=== PATIENT | male | born 1945 | race Caucasian/White ===

== ENCOUNTER 2017-09-01 19:33 | Inpatient (IN) | payer OTHER ==
[~2017-09-01] VITALS: Ht 170.2 cm; Wt 108.9 kg
--- NOTE | ~2017-09-01 | HC ---
[facility] [place] [address] CONSULTATION Name: ELIZABETH GARCIA Room #: 224-P ADM IN M.R.#: [id number] Admission: 09/01/17 Attend Phys: Arjun Jimenez Discharge: Date of : 47 Report #: [id number] THIS REPORT FOR: //name// CC: Basim Jimenez Physician staff DATE OF SERVICE: 09/03/2017 ATTENDING PHYSICIAN: Arjun Jimenez MD. REASON FOR CONSULTATION: Right leg cellulitis. HISTORY OF PRESENT ILLNESS: A 71-year-old white man is being dealing with right leg infection for 2 weeks, visited with his primary physician, Dr. Andrade. Cultures were obtained in the office. He was treated with Augmentin. He failed to improve. The cultures finally were reported as showing Staphylococcus aureus sensitive to oxacillin as well as Pseudomonas aeruginosa sensitive to most antibiotics, but carbapenem-resistant. The patient is on combination of Zosyn and vancomycin and of course, he is still having inflammatory changes and some pain on the right leg, but all in all, he is off gait. He is just wondering if he is going to lose his leg or not. PAST MEDICAL HISTORY: Diabetes mellitus; total knee replacement; right hip replacement; atrial fibrillation, status post permanent pacemaker. SOCIAL HISTORY: Single. Retired. FAMILY HISTORY: Alzheimer disease in father. REVIEW OF SYSTEMS: See H and P. PHYSICAL EXAMINATION: GENERAL: A well-developed, obese man, not toxic looking, no distress. VITAL SIGNS: Temperature 97.8, afebrile since admission, pulse 63, respirations 18, BP 145/69, height 5 feet 7 inches, weight 240 pounds. HEENT: Upper and lower plates. Pupils small. NECK: Supple, no thyromegaly. LUNGS: Clear. HEART: S1, S2. No gallop. Left side permanent pacemaker. The pocket site looks fine. ABDOMEN: Soft, no masses or megaly. EXTREMITIES: Reveal surgical scar, total knee replacement, right knee. Stasis dermatitis, left leg. Cellulitic changes, right leg with skin breakdown and some superficial bleeding. NEUROLOGIC: Grossly within normal limits. [facility] [address] [place] [address] CONSULTATION Name: ELIZABETH GARCIA Room #: 224-P [facility] IN ..#: [id number] Admission: 09/01/17 Attend Phys: Arjun Jimenez Discharge: Date of : 47 Report #: [id number] LABORATORY DATA: Cultures obtained of the right leg skin breakdown dated 08/29/2017 revealed methicillin-sensitive Staphylococcus aureus -- oxacillin-sensitive Staphylococcus aureus and Pseudomonas aeruginosa sensitive to Zosyn. Sodium 137, potassium 4.5, BUN 23, creatinine 0.9, glucose 187, 64. C-reactive protein 45.7. Protime 21.7. WBC 10.1, hemoglobin 13.4, platelets 214,000. White blood cell count differential revealed 80% segmented neutrophils. ESR 60 mm per hour. Vancomycin trough obtained today. MICROBIOLOGY DATA: Blood cultures were obtained on the of the month and they remained negative so far. RADIOLOGY EVALUATION: Venous ultrasound leg, no evidence of DVT. ASSESSMENT: 1. Cellulitis, right leg, superimposed on stasis dermatitis ulceration right leg, infected with Staphylococcus aureus, oxacillin sensitive and Pseudomonas aeruginosa, Zosyn sensitive. 2. Diabetes mellitus. 3. Status post permanent pacemaker. 4. History of right total knee replacement and right total hip replacement. SUGGESTIONS: Recommend MRSA screen. Continue Zosyn 3.375 g IV every 8 hours and may discontinue vancomycin for time being. Dr. Guerrier, thank you for requesting my suggestions in the care of your patient. <ELECTRONICALLY SIGNED> By: Timur Mariee MD 09/04/17 0823 1457 [id number] Timur Mariee MD /nt
[~2017-09-01 19:33] MED LIST: ACETAMINOPHEN325 MG; ACTOS 30 MG TAB30 M2 PO; CIPROFLOXACIN500 M1 PO; COUMADIN 5 MG TA5 M1 PO; COUMADIN7.5 MG PO; FINASTERIDE5 MG PO; FLAGYL500 MG PO; FLOMAX0.4 MG PO; GLIPIZIDE XL5 MG PO; GLUCOTROL5 MG PO; JANUVIA100 MG PO; METFORMIN HCL500 MG; MULTIVITAMINS; OMEPRAZOLE 20 M20 M1 PO; OXYBUTYNIN 5 MG5 M2 PO; PRILOSEC 20 MG20 MG PO; PROSCAR 5MG TABL5 MG; SIMVASTATIN40 MG PO; VITAMIN D3400 UNI2 PO; ZOCOR20 MG
[2017-09-01 19:43] VITALS: BP 131/67
[2017-09-01] MEDS ORDERED: LASIX 20 MG TAB20 MG PO (19:54)
[2017-09-01] MEDS ORDERED: PIOGLITAZONE15 MG (19:58)
[2017-09-01] MEDS ORDERED: VITAMIN B-12500 MCG PO (19:59)
[2017-09-01] MEDS ORDERED: LIPITOR80 MG PO (19:59)
[2017-09-01] MEDS ORDERED: VITAMINC500 PO (19:59)
[2017-09-01] MEDS ORDERED: KLOR-CON 1010 MEQ PO (19:59)
[2017-09-01] MEDS ORDERED: AUGMENTIN 875-1 EACH PO (20:00)
[2017-09-01] MEDS ORDERED: BACTROBAN CREAM30 G1 TOP (20:01)
[2017-09-01 20:21] LABS: ABSOLUTE NEUTROPHILS 8.1 thou/uL (1.4-8.2); BASOPHILS 0.8 % (0.0-2.0); EOSINOPHILS 0.3 % (0.0-3.0); HEMATOCRIT 39.8 % (42.0-52.0); HEMOGLOBIN 13.4 gm/dL (14.0-18.0); LYMPHOCYTES 9.9 % (24.0-44.0); MCH 29.1 pg (26.0-34.0); MCHC 33.8 g/dL (28.0-37.0); MCV 86.2 fL (80.0-100.0); MONOCYTES 8.3 % (1.0-8.0); PLATELET COUNT 246 thou/uL (150-400); POLYS 80.7 % (36.0-66.0); RBC 4.62 mil/uL (4.50-6.00); RDW 17.1 % (10.5-14.5); WBC 10.1 thou/uL (4.0-11.0)
[2017-09-01 20:43] LABS: CALCIUM 9.5 mg/dL (8.5-10.1); CREATININE 0.9 mg/dL (0.7-1.3); POTASSIUM 4.5 mmol/L (3.5-5.1)
[2017-09-01 22:29] VITALS: BP 151/60
[2017-09-01 22:55] VITALS: BP 151/60
[2017-09-02 00:16] LABS: INR 3.3; PROTIME 31.4 Seconds (9.3-11.4)
[2017-09-02] MEDS ORDERED: GLIPIZIDE XL5 MG PO (00:57)
[2017-09-02] MEDS ORDERED: COUMADIN 5 MG TA5 M1 PO (01:07)
[2017-09-02] MEDS ORDERED: OXYBUTYNIN 5 MG5 M2 PO (02:09)
[2017-09-02 06:48] LABS: INR 2.7; PROTIME 27.1 Seconds (9.3-11.4)
[2017-09-02 08:06] VITALS: BP 133/65
[2017-09-02 09:36] VITALS: BP 133/65
[2017-09-02 16:43] VITALS: BP 110/62
[2017-09-02 20:00] VITALS: BP 124/59
[2017-09-03 07:30] VITALS: BP 145/69
[2017-09-03 07:35] LABS: INR 2.1; PROTIME 21.7 Seconds (9.3-11.4)
[2017-09-03 20:20] VITALS: BP 139/69
[2017-09-04 07:49] LABS: INR 1.8; PROTIME 18.2 Seconds (9.3-11.4)
[2017-09-04 08:05] VITALS: BP 144/78
[2017-09-04 11:56] VITALS: BP 144/78
[2017-09-04] MEDS ORDERED: CIPRO500 MG PO (15:25)
[2017-09-04] MEDS ORDERED: KEFLEX500 M1 PO (15:25)
== END 2017-09-04 16:38 | disposition home health service (06) | DRG 602 ==
LOC: ER 19:33 → EROBS 22:05 → 4E 22:05 → SICU 09-02 16:33
PROVIDERS: Emergency Medicine; Nurse Practitioner Acute Care
DX: L03.115 Cellulitis of right lower limb (principal); E43 Unspecified severe protein-calorie malnutrition; L97.819 Non-pressure chronic ulcer of other part of right lower leg with unspecified severity; E11.9 Type 2 diabetes mellitus without complications; M19.90 Unspecified osteoarthritis, unspecified site; I87.2 Venous insufficiency (chronic) (peripheral); I48.2 Chronic atrial fibrillation; N32.81 Overactive bladder; N40.1 Benign prostatic hyperplasia with lower urinary tract symptoms; E78.5 Hyperlipidemia, unspecified; E66.9 Obesity, unspecified; B95.61 Methicillin susceptible Staphylococcus aureus infection as the cause of diseases classified elsewhere; B96.5 Pseudomonas (aeruginosa) (mallei) (pseudomallei) as the cause of diseases classified elsewhere; Z96.653 Presence of artificial knee joint, bilateral; Z96.641 Presence of right artificial hip joint; Z68.37 Body mass index [BMI] 37.0-37.9, adult; Z87.891 Personal history of nicotine dependence; Z95.0 Presence of cardiac pacemaker; Z79.01 Long term (current) use of anticoagulants; Z79.899 Other long term (current) drug therapy; Z88.8 Allergy status to other drugs, medicaments and biological substances; Z82.0 Family history of epilepsy and other diseases of the nervous system; Z80.0 Family history of malignant neoplasm of digestive organs
CPT/HCPCS: 10084; 15000

== ENCOUNTER 2018-01-04 17:25 | Inpatient (IN) | payer OTHER ==
[~2018-01-04] VITALS: Ht 177.8 cm; Wt 105.5 kg
--- NOTE | ~2018-01-04 | EKG ---
[address] [place] [address] ELECTROCARDIOGRAM REPORT Name: ELIZABETH GARCIA Room #: 431-P ADM IN M.R.#: [id number] Admission: 01/04/18 Attend Phys: Berny Key MD Discharge: Date of : 47 Report #: [id number] THIS REPORT FOR: //name// [facility] Test Date: 2018-01-05 Test Time: 10:54:41 Pat Name: ELIZABETH GARCIA Department: Room: 431 P Gender: M Enrollment Clerk: Shani MCGARRY : 1945 Requested By: Sophia Espinal Order Number: [id number] MD: Neymar Aguila Measurements Intervals [place] Rate: 79 P: 117 DE: 301 QRS: -56 QRSD: 152 T: 114 QT: 414 QTc: 475 Interpretive Statements Atrial-ventricular dual-paced rhythm No further analysis attempted due to paced rhythm Compared to ECG 01/27/2002 11:29:22 Dual chamber pacing is now present Electronically Signed On 01-05-2018 16:38:28 CDT by Neymar Aguila [email or web address] <ELECTRONICALLY SIGNED> By: Neymar Aguila MD, [facility] 01/05/18 1638 1054 1054 Neymar Aguila MD, [facility] /EPI
--- NOTE | ~2018-01-04 | 2DMMODE ---
[facility] [address] [place] [address] 2 D/M-MODE ECHOCARDIOGRAM Name: ELIZABETH GARCIA Room #: 431-P ADM IN M.R.#: [id number] Admission: 01/04/18 Attend Phys: Berny Key MD Discharge: Date of : 47 Date of Service: 01/05/18 1003 Report #: [id number] THIS REPORT FOR: //name// APPROVED REPORT Study performed: 01/05/2018 08:20:10 EXAM: Comprehensive 2D, Doppler, and color-flow Echocardiogram Patient Location: Echo lab Room #: [facility] BSA: 2.18 HR: 69 bpm BP: 151/66 mmHg Rhythm: NSR Other Information Study Quality: Adequate Technically limited study due to body habitus. Indications Congestive Heart Failure Bilateral leg edema. Hx: Afib, pacemaker 2D Dimensions RVDd: 39.72 mm IVSd: 14.00 (7-11mm) LVOT Diam: 21.97 (18-24mm) LVDd: 43.38 mm PWd: 14.00 (7-11mm) Ascending Ao: 39.22 (22-36mm) LVDs: 30.94 (25-40mm) Aortic Root: 35.50 mm Volumes Left Atrial Volume (Systole) Single Plane 4CH: 57.79 mL Single Plane 2CH: 42.54 mL LA ESV Index: 25.00 mL/m2 Aortic Valve AoV Peak Sharan.: 2.55 m/s AO Peak Gr.: 26.07 mmHg LVOT Max P.61 mmHg AO Mean Gr.: 13.09 mmHg AO V2 Mean: 1.66 m/s LVOT Max V: 1.38 m/s AO V2 VTI: 48.87 cm LISSET Vmax: 2.05 cm2 [facility] [place] [address] 2 D/M-MODE ECHOCARDIOGRAM Name: ELIZABETH GARCIA Room #: 431-P [facility] IN M.R.#: [id number] Admission: 01/04/18 Attend Phys: Berny Key MD Discharge: Date of : 47 Date of Service: 01/05/18 1003 Report #: [id number] Mitral Valve E/A Ratio: 0.7 MV Decel. Time: 312.47 ms MV E Max Sharan.: 0.65 m/s MV A Sharan.: 0.88 m/s MV PHT: 90.62 ms IVRT: 87.66 ms Pulmonary Valve PV Peak Sharan.: 1.03 m/s PV Peak Gr.: 4.20 mmHg Pulmonary Vein P Vein S: 0.52 m/s P Vein A: 0.29 m/s P Vein D: 0.26 m/s P Vein A Dur.: 133.8 msec P Vein S/D Ratio: 2.00 Tricuspid Valve TR Peak Sharan.: 2.69 m/s RAP Estimate: 5.00 mmHg TR Peak Gr.: 29.04 mmHg PA Pressure: 34.00 mmHg Left Ventricle The left ventricle is normal size. There is normal LV segmental wall motion. Mild concentric left ventricular hypertrophy. Left ventricular systolic function is normal. LVEF is 60-65%. Mild diastolic dysfunction is present (impaired relaxation pattern). Right Ventricle The right ventricle is normal size. The right ventricular systolic function is normal. Pacemaker lead is present in the right ventricle. Atria The left atrium size is normal. The right atrium size is normal. Aortic Valve Aortic valve is moderately calcified. Minimal aortic regurgitation. There is borderline valvular aortic stenosis. Calculated aortic valve area is 2.0 cm2 with maximum pressure gradient of 26 mmHg and mean pressure gradient of 13 mmHg. Mitral Valve The mitral valve is normal in structure. There is no mitral valve regurgitation noted. [facility] [address] [place] [address] 2 D/M-MODE ECHOCARDIOGRAM Name: ELIZABETH GARCIA Room #: 431-P [facility] IN [facility].#: [id number] Admission: 01/04/18 Attend Phys: Berny Key MD Discharge: Date of : 47 Date of Service: 01/05/18 1003 Report #: [id number] Tricuspid Valve The tricuspid valve is normal in structure. Trace to mild tricuspid regurgitation. Estimated PAP is 35mmHg. Pulmonic Valve Pulmonic valve is not well visualized. Trace pulmonic regurgitation. Great Vessels The aortic root is normal in size. The ascending aorta is normal in size. IVC is normal in size and collapses >50% with inspiration. Pericardium There is no pericardial effusion. <Conclusion> Left ventricular systolic function is normal. There is normal LV segmental wall motion. LVEF is 60-65%. Mild diastolic dysfunction Aortic valve is moderately calcified, mildly stenotic. Calculated aortic valve area is 2.0 cm2 with maximum pressure gradient of 26 mmHg and mean pressure gradient of 13 mmHg. The mitral valve is normal in structure. No mitral valve regurgitation Trace to mild tricuspid regurgitation. Estimated pulmonary artery pressure of 35mmHg. There is no pericardial effusion. <ELECTRONICALLY SIGNED> By: Neymar Aguila MD, FACC 01/05/18 100 02 02 Neymar Aguila MD, FACC /INF
--- NOTE | ~2018-01-04 | HC ---
[facility] [place] [address] CONSULTATION Name: ELIZABETH GARCIA Room #: 431-P ADM IN M.R.#: [id number] Admission: 01/04/18 Attend Phys: Berny Key MD Discharge: Date of : 47 Report #: [id number] THIS REPORT FOR: //name// CC: Berny Cates DATE OF SERVICE: 01/06/2018 INFECTIOUS DISEASES CONSULTATION ATTENDING PHYSICIAN: Dr. Key. REASON FOR CONSULTATION: Right leg stasis dermatitis, cellulitis. HISTORY OF PRESENT ILLNESS: The patient is a 72-year-old white man previously admitted to [facility] with similar problem as today. The patient has chronic stasis dermatitis and superficial ulcerations, right leg with some mild cellulitis and evidence of peripheral vascular disease by old ultrasound studies. Apparently, the patient had been on Lasix as well as Keflex, currently on Keflex 500 b.i.d. Denies fevers. PAST MEDICAL HISTORY: Type 2 diabetes mellitus. Left hip replacement. Right total knee replacement. Recurrent cellulitis, stasis ulceration, right leg. Status post permanent pacemaker. Chronic atrial fibrillation. Dyslipidemia. DRUG ALLERGIES: METFORMIN, SULINDAC. MEDICATIONS: The patient is on treatment with potassium chloride supplementation, torsemide, atorvastatin, warfarin, magnesium and potassium supplementation per protocol, cephalexin 500 p.o. b.i.d., multivitamins with minerals, finasteride, cholecalciferol, tamsulosin, glipizide XL, pantoprazole, insulin lispro per sliding scale, p.r.n. glucose, glucagon, p.r.n. ondansetron, pioglitazone was discontinued. SOCIAL HISTORY: He is single. Enjoys photography. We discussed about the multiple cameras he owns. FAMILY HISTORY: See H and P, old records. REVIEW OF SYSTEMS: Noncontributory. PHYSICAL EXAMINATION: GENERAL: Well-developed man, not toxic looking. VITAL SIGNS: Temperature maximum 99.2, pulse 61, respirations 17, BP 113/61. Height 5 feet 10 inches, weight 232.5 pounds. HEENMT: Within range. [facility] [address] [place] [address] CONSULTATION Name: ELIZABETH GARCIA Room #: 431-P ADM IN M.R.#: [id number] Admission: 01/04/18 Attend Phys: Berny Key MD Discharge: Date of : 47 Report #: [id number] NECK: Supple. LUNGS: Few basilar crackles. HEART: S1, S2. No gallops. ABDOMEN: Obese, soft, no masses or megaly. EXTREMITIES: Surgical scar of total knee replacement, right knee. Superficial skin breakdown, right pretibial region, some pretibial edema, no abuse cellulitic changes. Oozing per wounds. NEUROLOGIC: Grossly within normal limits. LABORATORY DATA: Sodium 138, potassium 3.9, BUN 20, creatinine 0.8, glucose 156. Protime 15.9. WBC 6000, hemoglobin 13.3, platelets 159,000. White blood cell count differential reveals 70% neutrophils, 19% lymphocytes. RADIOLOGY EVALUATION: Chest x-ray revealed cardiomegaly, elevation of right hemidiaphragm, bibasilar atelectasis, infiltrate, permanent pacemaker, elevation of right hemidiaphragm. Ultrasound arterial circulation revealed evidence of peripheral vascular disease. ASSESSMENT: 1. Stasis dermatitis -- chronic with superficial ulceration, right leg, question cellulitis. 2. Peripheral vascular disease. 3. Acute on chronic diastolic congestive heart failure 4. Atrial fibrillation, permanent pacemaker. 5. Hypertension. 6. Diabetes mellitus. SUGGESTIONS: Recommend Rocephin 1 g IV daily. Discontinue Keflex for time being. Continue local wound care. Discharged on Keflex [address] Key, thank you for requesting my suggestions. <ELECTRONICALLY SIGNED> By: Timur Mariee MD 01/07/18 0922 1043 2243 Timur Mariee MD /nt
[~2018-01-04 17:25] MED LIST changes: +AUGMENTIN 875-1 EACH PO; +BACTROBAN CREAM30 G1 TOP; +CIPRO500 MG PO; +KEFLEX500 M1 PO; +KLOR-CON 1010 MEQ PO; +LASIX 20 MG TAB20 MG PO; +LIPITOR80 MG PO; +PIOGLITAZONE15 MG; +VITAMIN B-12500 MCG PO; +VITAMINC500 PO
[2018-01-04 17:36] VITALS: BP 132/58
[2018-01-04 20:02] LABS: ABSOLUTE NEUTROPHILS 4.3 thou/uL (1.4-8.2); BASOPHILS 0.5 % (0.0-2.0); EOSINOPHILS 0.7 % (0.0-3.0); HEMATOCRIT 39.3 % (42.0-52.0); HEMOGLOBIN 13.3 gm/dL (14.0-18.0); LYMPHOCYTES 19.4 % (24.0-44.0); MCH 28.4 pg (26.0-34.0); MCHC 33.8 g/dL (28.0-37.0); MCV 84.1 fL (80.0-100.0); MONOCYTES 8.7 % (1.0-8.0); PLATELET COUNT 159 thou/uL (150-400); POLYS 70.7 % (36.0-66.0); RBC 4.67 mil/uL (4.50-6.00); RDW 17.5 % (10.5-14.5)
[2018-01-04 20:09] LABS: CALCIUM 9.6 mg/dL (8.5-10.1); CREATININE 0.8 mg/dL (0.7-1.3); POTASSIUM 4.6 mmol/L (3.5-5.1)
[2018-01-04 22:24] VITALS: BP 132/58
[2018-01-04 22:52] VITALS: BP 135/85
[2018-01-04 23:08] VITALS: BP 141/59
[2018-01-05 05:52] LABS: CALCIUM 9.2 mg/dL (8.5-10.1); CREATININE 0.8 mg/dL (0.7-1.3)
[2018-01-05 05:53] LABS: POTASSIUM 3.2 mmol/L (3.5-5.1)
[2018-01-05 06:27] LABS: INR 1.9; PROTIME 18.8 Seconds (9.3-11.4)
[2018-01-05 07:43] VITALS: BP 151/66
[2018-01-05 20:45] VITALS: BP 131/60
[2018-01-06 04:07] LABS: CALCIUM 9.5 mg/dL (8.5-10.1); CREATININE 0.8 mg/dL (0.7-1.3); POTASSIUM 3.9 mmol/L (3.5-5.1)
[2018-01-06 04:13] LABS: INR 1.6; PROTIME 15.9 Seconds (9.3-11.4)
[2018-01-06 07:35] VITALS: BP 113/61
[2018-01-06 15:34] VITALS: BP 113/61
[2018-01-06 15:52] VITALS: BP 131/92
[2018-01-06 19:16] VITALS: BP 128/68
[2018-01-07] VITALS (10 sets, daily range): BP systolic 109–141; BP diastolic 46–68
[2018-01-07 06:20] LABS: ABSOLUTE NEUTROPHILS 4.6 thou/uL (1.4-8.2); BASOPHILS 0.6 % (0.0-2.0); EOSINOPHILS 1.5 % (0.0-3.0); HEMOGLOBIN 14.2 gm/dL (14.0-18.0); LYMPHOCYTES 21.2 % (24.0-44.0); MCH 28.4 pg (26.0-34.0); MCHC 33.7 g/dL (28.0-37.0); MCV 84.2 fL (80.0-100.0); MONOCYTES 9.6 % (1.0-8.0); PLATELET COUNT 179 thou/uL (150-400); POLYS 67.1 % (36.0-66.0); RBC 4.98 mil/uL (4.50-6.00); RDW 17.5 % (10.5-14.5); WBC 6.8 thou/uL (4.0-11.0)
[2018-01-07 06:35] LABS: CALCIUM 9.8 mg/dL (8.5-10.1); CREATININE 0.8 mg/dL (0.7-1.3); POTASSIUM 3.7 mmol/L (3.5-5.1)
[2018-01-07 06:39] LABS: INR 1.4; PROTIME 14.2 Seconds (9.3-11.4)
[2018-01-08 04:55] VITALS: BP 129/74
[2018-01-08 06:27] LABS: INR 1.4; PROTIME 14.2 Seconds (9.3-11.4)
[2018-01-08 07:26] VITALS: BP 118/51
[2018-01-08] MEDS ORDERED: KEFLEX500 M1 PO (11:50)
[2018-01-08] MEDS ORDERED: COUMADIN7.5 MG PO (11:51)
== END 2018-01-08 15:55 | disposition home health service (06) | DRG 981 ==
LOC: ER 17:25 → EROBS 21:20 → 4E 21:20
PROVIDERS: Emergency Medicine; Internal Medicine; Nurse Practitioner Family; Nurse Practitioner Gerontology
DX: L97.919 Non-pressure chronic ulcer of unspecified part of right lower leg with unspecified severity (principal); I50.33 Acute on chronic diastolic (congestive) heart failure; E43 Unspecified severe protein-calorie malnutrition; D68.59 Other primary thrombophilia; L03.116 Cellulitis of left lower limb; E11.51 Type 2 diabetes mellitus with diabetic peripheral angiopathy without gangrene; M19.90 Unspecified osteoarthritis, unspecified site; Z96.643 Presence of artificial hip joint, bilateral; E78.5 Hyperlipidemia, unspecified; R23.8 Other skin changes; I87.2 Venous insufficiency (chronic) (peripheral); E87.6 Hypokalemia; I49.5 Sick sinus syndrome; Z60.2 Problems related to living alone; N40.0 Benign prostatic hyperplasia without lower urinary tract symptoms; I48.0 Paroxysmal atrial fibrillation; I77.1 Stricture of artery; Z23 Encounter for immunization; Z95.0 Presence of cardiac pacemaker; Z88.2 Allergy status to sulfonamides; Z88.8 Allergy status to other drugs, medicaments and biological substances; Z79.01 Long term (current) use of anticoagulants; Z80.0 Family history of malignant neoplasm of digestive organs; Z81.8 Family history of other mental and behavioral disorders; Z87.891 Personal history of nicotine dependence
CPT/HCPCS: 10084; 10183; 10783

== ENCOUNTER 2018-01-29 13:30 | Emergency (ER) | payer OTHER ==
[~2018-01-29] VITALS: Ht 177.8 cm; Wt 99.8 kg
[2018-01-29 14:26] LABS: ABSOLUTE NEUTROPHILS 3.8 thou/uL (1.4-8.2); BASOPHILS 0.5 % (0.0-2.0); EOSINOPHILS 0.8 % (0.0-3.0); HEMATOCRIT 39.8 % (42.0-52.0); HEMOGLOBIN 13.2 gm/dL (14.0-18.0); LYMPHOCYTES 18.5 % (24.0-44.0); MCH 28.1 pg (26.0-34.0); MCHC 33.1 g/dL (28.0-37.0); MCV 84.8 fL (80.0-100.0); MONOCYTES 7.6 % (1.0-8.0); PLATELET COUNT 153 thou/uL (150-400); POLYS 72.6 % (36.0-66.0); RDW 17.9 % (10.5-14.5); WBC 5.3 thou/uL (4.0-11.0)
[2018-01-29 14:29] LABS: CALCIUM 9.3 mg/dL (8.5-10.1); CREATININE 0.8 mg/dL (0.7-1.3); POTASSIUM 4.1 mmol/L (3.5-5.1)
[2018-01-29 14:35] LABS: ALBUMIN 3.1 g/dL (3.4-5.0); TOTAL BILIRUBIN 0.5 mg/dL (<0.1-1.0); TOTAL PROTEIN 7.1 g/dL (6.4-8.2)
== END 2018-01-29 16:24 | disposition home or self-care (01) ==
LOC: ER 13:30
PROVIDERS: Nurse Practitioner Family
DX: I73.9 Peripheral vascular disease, unspecified (principal); I10 Essential (primary) hypertension; E78.5 Hyperlipidemia, unspecified; E11.9 Type 2 diabetes mellitus without complications; I48.91 Unspecified atrial fibrillation; Z79.01 Long term (current) use of anticoagulants; Z96.642 Presence of left artificial hip joint; Z96.641 Presence of right artificial hip joint; Z95.0 Presence of cardiac pacemaker; Z88.8 Allergy status to other drugs, medicaments and biological substances; Z87.891 Personal history of nicotine dependence

== ENCOUNTER → 2018-10-14 | Outpatient (CLI) | payer OTHER | LOC: HYPER 10-05 13:54 | DX: E11.622 Type 2 diabetes mellitus with other skin ulcer (principal); L97.811 Non-pressure chronic ulcer of other part of right lower leg limited to breakdown of skin; R60.0 Localized edema; E78.5 Hyperlipidemia, unspecified; I48.91 Unspecified atrial fibrillation; Z79.84 Long term (current) use of oral hypoglycemic drugs; Z87.891 Personal history of nicotine dependence; Z95.0 Presence of cardiac pacemaker; Z79.01 Long term (current) use of anticoagulants; Z96.643 Presence of artificial hip joint, bilateral; Z96.651 Presence of right artificial knee joint ==

== ENCOUNTER → 2018-10-21 | Outpatient (CLI) | payer OTHER | LOC: HYPER 06:48 | DX: E11.622 Type 2 diabetes mellitus with other skin ulcer (principal); L97.811 Non-pressure chronic ulcer of other part of right lower leg limited to breakdown of skin; I48.91 Unspecified atrial fibrillation; E78.5 Hyperlipidemia, unspecified; R60.0 Localized edema; Z87.891 Personal history of nicotine dependence; Z79.84 Long term (current) use of oral hypoglycemic drugs; Z95.0 Presence of cardiac pacemaker; Z79.01 Long term (current) use of anticoagulants ==

== ENCOUNTER → 2018-10-29 | Outpatient (CLI) | payer OTHER | LOC: HYPER 06:48 | DX: E11.622 Type 2 diabetes mellitus with other skin ulcer (principal); L97.811 Non-pressure chronic ulcer of other part of right lower leg limited to breakdown of skin; R60.0 Localized edema; E78.5 Hyperlipidemia, unspecified; I48.91 Unspecified atrial fibrillation; Z79.84 Long term (current) use of oral hypoglycemic drugs; Z87.891 Personal history of nicotine dependence; Z79.01 Long term (current) use of anticoagulants; Z95.0 Presence of cardiac pacemaker ==

== ENCOUNTER 2019-05-18 15:43 | Emergency (ER) | payer OTHER ==
[~2019-05-18] VITALS: Ht 177.8 cm; Wt 105.7 kg
[2019-05-18 16:21] LABS: ABSOLUTE NEUTROPHILS 4.1 thou/uL (1.4-8.2); BASOPHILS 0.7 % (0.0-2.0); EOSINOPHILS 1.4 % (0.0-3.0); HEMATOCRIT 44.6 % (42.0-52.0); HEMOGLOBIN 14.3 gm/dL (14.0-18.0); LYMPHOCYTES 19.8 % (24.0-44.0); MCH 28.2 pg (26.0-34.0); MCV 88.1 fL (80.0-100.0); MONOCYTES 7.7 % (1.0-8.0); PLATELET COUNT 229 thou/uL (150-400); POLYS 70.4 % (36.0-66.0); RBC 5.07 mil/uL (4.50-6.00); RDW 16.9 % (10.5-14.5); WBC 5.8 thou/uL (4.0-11.0)
[2019-05-18 16:25] LABS: URINE BLOOD 3+ (Negative); URINE CLARITY TURBID; URINE COLOR YELLOW; URINE GLUCOSE-RANDOM* 1+ (Negative); URINE KETONES TRACE (Negative); URINE PROTEIN (DIPSTICK) 3+ (Negative); URINE SPECIFIC GRAVITY 1.015 (1.005-1.035); URINE UROBILINOGEN >= 8.0 E.U./dl (0.2-1.0)
[2019-05-18 16:26] LABS: ICTOTEST (BILI CONFIRMATORY) Negative (Negative); URINE BILIRUBIN NEGATIVE (Negative); URINE LEUKOCYTES-REFLEX 3+ (Negative); URINE NITRITE-REFLEX POSITIVE (Negative)
[2019-05-18 16:30] LABS: CALCIUM 9.1 mg/dL (8.5-10.1); CREATININE 0.9 mg/dL (0.7-1.3)
[2019-05-18 16:33] LABS: AMORPHOUS URATES Few /LPF (None Seen); BACTERIA-REFLEX >30 Many /HPF (None Seen); CASTS None Seen /LPF (None Seen); INR 4.4; PROTIME 44.8 Seconds (9.3-11.4); SQUAMOUS None Seen /LPF (0-3); URINE WBC-REFLEX >25 Many /HPF (0-5)
[2019-05-18] MEDS ORDERED: AZO BLADDER CO300 MG PO (16:34)
[2019-05-18] MEDS ORDERED: LIPITOR10 MG PO ×2 (16:35→16:36)
[2019-05-18] MEDS ORDERED: FLOMAX0.4 MG PO (16:36)
[2019-05-18] MEDS ORDERED: IRON18 M1 PO (16:37)
[2019-05-18] MEDS ORDERED: ACTOS 30 MG TAB30 M1 PO ×2 (16:38→16:39)
[2019-05-18] MEDS ORDERED: CEFUROXIME250 MG PO (17:12)
[2019-05-18] MEDS ORDERED: DESITIN57 GM TOP (17:16)
[2019-05-18 17:50] VITALS: BP 134/45
== END 2019-05-18 17:50 | disposition home or self-care (01) ==
LOC: ER 15:43
PROVIDERS: Emergency Medicine Emergency Medical Services
DX: N39.0 Urinary tract infection, site not specified (principal); I48.91 Unspecified atrial fibrillation; E78.5 Hyperlipidemia, unspecified; E11.9 Type 2 diabetes mellitus without complications; Z87.891 Personal history of nicotine dependence; Z88.8 Allergy status to other drugs, medicaments and biological substances

== ENCOUNTER 2020-05-22 18:06 | Inpatient (IN) | payer OTHER ==
[~2020-05-22] VITALS: Ht 177.8 cm; Wt 100.9 kg
[~2020-05-22 18:06] MED LIST changes: +ACTOS 30 MG TAB30 M1 PO; +AZO BLADDER CO300 MG PO; +CEFUROXIME250 MG PO; +DESITIN57 GM TOP; +IRON18 M1 PO; +LIPITOR10 MG PO
[2020-05-22 18:07] VITALS: BP 144/50
[2020-05-22 18:51] LABS: ABSOLUTE NEUTROPHILS 9.1 thou/uL (1.4-8.2); BASOPHILS 0.4 % (0.0-2.0); EOSINOPHILS 0.2 % (0.0-3.0); HEMATOCRIT 38.3 % (42.0-52.0); HEMOGLOBIN 12.2 gm/dL (14.0-18.0); LYMPHOCYTES 4.8 % (24.0-44.0); MCH 26.5 pg (26.0-34.0); MCHC 31.9 g/dL (28.0-37.0); MONOCYTES 6.6 % (1.0-8.0); PLATELET COUNT 151 thou/uL (150-400); RBC 4.61 mil/uL (4.50-6.00); RDW 18.6 % (10.5-14.5); WBC 10.4 thou/uL (4.0-11.0)
[2020-05-22 19:07] LABS: ANION GAP 11 mmol/L (7-16); BUN 20 mg/dL (7-18); CALCIUM 9.6 mg/dL (8.5-10.1); CHLORIDE 99 mmol/L (98-107); CO2 27 mmol/L (21-32); GLUCOSE 114 mg/dL (74-106); SODIUM 137 mmol/L (136-145)
[2020-05-22 19:15] LABS: APTT 34.9 Seconds (24.5-32.8); INR 1.3; PROTIME 14.3 Seconds (9.3-11.4)
[2020-05-22 19:37] LABS: ALBUMIN 3.4 g/dL (3.4-5.0); SGOT 41 U/L (15-37); SGPT 44 U/L (30-65); TOTAL BILIRUBIN 1.7 mg/dL (0.2-1.0); TOTAL PROTEIN 8.2 g/dL (6.4-8.2); TROPONIN-I <0.06 ng/mL (<0.06)
[2020-05-22 20:56] VITALS: BP 144/50
[2020-05-22 21:34] VITALS: BP 118/42
[2020-05-22 21:48] VITALS: BP 136/74
[2020-05-22] MEDS ORDERED: ASA81BEC PO (23:58)
[2020-05-23] MEDS ORDERED: TYLENOL325 M1 PO (00:01)
--- NOTE | 2020-05-23 00:50 | NUR ---
PT ADMITTED TO THE UNIT AT APPROXIMATELY 2130. PT IS A/O X4 AND IS UP WITH ASSIST. CURRENTLY UNABLE TO AMBULATE DUE TO WEAKNESS IN BILAT LE. DENIES C/O PAIN AT THIS TIME. ROOM AIR. V-PACED ON THE MONITOR. INCONTINENT OF BOWEL AND BLADDER. PICTURES TAKEN OF LOWER EXTREMITIES. ZGUARD APPLIED TO [place] AREA AND BUTTOCKS. ADMISSION COMPLETED. MEDICATIONS GIVEN PER JUN. FALL PRECAUTIONS IN PLACE, CALL LIGHT IS WITHIN REACH. WILL CONTINUE TO MONITOR.
--- NOTE | 2020-05-23 07:05 | EKG ---
[address] [address] ELECTROCARDIOGRAM REPORT Name: ELIZABETH GARCIA Room #: 464-P ADM IN M.R.#: [id number] Admission: 05/22/20 Attend Phys: Suni Collins MD Discharge: Date of : 47 Report #: [id number] [facility] ED Test Date: 2020-05-22 Test Time: 18:42:29 Pat Name: ELIZABETH GARCIA Department: Room: [facility] Gender: M Sole Buffer: sea : 1945 Requested By: Victor M Isabel Order Number: [id number] MD: Thee Ba Measurements Intervals [place] Rate: 65 P: 0 DC: 42 QRS: -60 QRSD: 152 T: 115 QT: 445 QTc: 463 Interpretive Statements Ventricular-paced rhythm No further analysis attempted due to paced rhythm Compared to ECG 01/05/2018 10:54:41 AV dual-paced complex(es) or rhythm no longer present Electronically Signed On 05-23-2020 7:04:56 CABLE WIRER by Thee Ba [email or web address] <ELECTRONICALLY SIGNED> By: Thee Ba MD, [facility] 05/23/20 0704 1842 1842 Thee Ba MD, [facility] /EPI
[2020-05-23 07:37] VITALS: BP 122/64
[2020-05-23 16:52] VITALS: BP 98/52
[2020-05-23 19:23] VITALS: BP 110/61
--- NOTE | 2020-05-23 19:37 | NUR ---
Assumed pt care at 7am.Pt in and out of bed to chair and bsc with assist x2. Assessment completed.vss.Pt has good appetite and voiced no c/o.Dr Key and Adriana here, order noted.Drsg change done to bilat lower extremities as ordered.Fall bundle in place. Will continue to monitor.
[2020-05-24 00:05] LABS: GLYCOHEMOGLOBIN (HGB A1C) 7.1 % (4.8-5.6)
--- NOTE | 2020-05-24 04:26 | NUR ---
PT IS A/O X4 AND IS UP WITH ASSIST TO THE BSC. DRSGS C/D/I TO LE. ROOM AIR. DENIES C/O PAIN OR DISCOMFORT. FALL PRECAUTIONS IMPLEMENTED, CALL LIGHT IS WITHIN REACH.
[2020-05-24 08:12] VITALS: BP 106/67
[2020-05-24 08:46] LABS: HEMATOCRIT 34.2 % (42.0-52.0); HEMOGLOBIN 10.7 gm/dL (14.0-18.0); MCH 25.9 pg (26.0-34.0); MCHC 31.3 g/dL (28.0-37.0); MCV 82.7 fL (80.0-100.0); RBC 4.13 mil/uL (4.50-6.00); RDW 19.1 % (10.5-14.5)
[2020-05-24 08:58] LABS: INR 1.5; PROTIME 16.2 Seconds (9.3-11.4)
[2020-05-24 09:08] LABS: CALCIUM 8.6 mg/dL (8.5-10.1); CREATININE 0.8 mg/dL (0.7-1.3); POTASSIUM 3.5 mmol/L (3.5-5.1)
--- NOTE | 2020-05-24 12:18 | HC ---
[facility] [place] [address] CONSULTATION Name: ELIZABETH GARCIA Room #: 464-P ADM IN M.R.#: [id number] Admission: 05/22/20 Attend Phys: Berny Key MD Discharge: Date of : 47 Report #: [id number] THIS REPORT FOR: cc: Basim Cates MD,Basim Castaneda,Linus Quintero MD ~ DATE OF SERVICE: 05/23/2020 INFECTIOUS DISEASE CONSULTATION ATTENDING PHYSICIAN: Dr. Collins. REASON FOR EVALUATION: Bilateral lower extremity inflammatory eruptions, suspect a component of skin and soft tissue infection with cellulitis. HISTORY OF SUBJECTIVE: Chart reviewed, the patient examined. This is a 74-year-old with history of diabetes mellitus, venous stasis insufficiency, who is unable to give specifics about his history. He did present to the Emergency Room after referral from home health. He has ongoing issues with bilateral lower extremity wounds complicated by significant swelling, apparently thought they were looking worse, increasing inflammatory ____. Denies significant fevers or chills. He does admit to some pain and specifically very weak, was unable to get out of his chair likely any significant pulmonary or gastrointestinal related complaints. Evaluation in the Emergency Room, chest x-ray showed mild cardiomegaly. Lactic acid was slightly elevated at 2.3, repeat was 1.9. ProBNP of 1400. Blood cultures are sterile thus far, empirically started on combination therapy with vancomycin and Zosyn. He is not overtly toxic appearing at this point. He notes he had cultures taken as an outpatient and try to track those down. ALLERGIES: METFORMIN, SULINDAC. CURRENT MEDICATIONS: Include potassium chloride, furosemide, aspirin, tamsulosin, famotidine, insulin, oxybutynin, atorvastatin, warfarin, Zosyn, p.r.n. analgesics and antiemetics. PAST MEDICAL HISTORY: As described above, diabetes mellitus, degenerative joint disease, venous stasis insufficiency with dermatitis and ulcers, history of atrial fibrillation, hyperlipidemia. SOCIAL HISTORY: Nonsmoker, occasional ethanol, no illicit drug use. FAMILY HISTORY: Noncontributory. REVIEW OF SYSTEMS: Otherwise, unremarkable. [facility] [address] [place] [address] CONSULTATION Name: ELIZABETH GARCIA Room #: 464-P [facility] IN ..#: [id number] Admission: 05/22/20 Attend Phys: Berny Key MD Discharge: Date of : 47 Report #: [id number] PHYSICAL EXAMINATION: GENERAL: He is pleasant. He is somewhat distracted, although he is concentrating on his eating, tayn-hf-mccimxrx distress, appears somewhat chronically ill, may have some degree of mild encephalopathy. VITAL SIGNS: Temperature 99.1 overnight T-max of 99.7, pulse 65, respirations 16, blood pressure 122/64. SKIN: Warm, dry, no rashes. HEENT: Unremarkable. NECK: Supple. LUNGS: Diminished breath sounds. HEART: Somewhat distant, regular with ectopy, do not appreciate any murmur. ABDOMEN: Soft, mildly distended, nontender. EXTREMITIES: Bilateral lower extremities have dressings in place. AND RECTAL: Deferred. LABORATORY DATA: Blood cultures sterile thus far. ProBNP of 1402. Lactic acid most recently 1.9. Electrolytes: Sodium 137, potassium 4.0, chloride 99, bicarbonate is 27, anion gap of 11, BUN and creatinine 20 and 1.0, glucose of 114, total bilirubin of 1.7, alkaline phosphatase of 170. LFTs were otherwise unremarkable. Albumin 3.4, total protein of 8.2. CBC: White count 7.4, H and H 12.2 and 38.3, platelets of 151. ASSESSMENT: Bilateral lower extremity inflammatory eruption. I think this is likely multifactorial in etiology. Certainly, the overall signs and symptoms of worsening would favor intercurrent component of infection as well as cellulitis. We will continue current therapy, specifically most likely a Staph or strep. Continue wound care as prescribed with elevation, may consider compression as well. Check arterial Doppler's noted back in 2018 had bilateral infrapopliteal arterial occlusive disease with arteriogram. <ELECTRONICALLY SIGNED> By: Linus Castaneda MD 05/24/20 1218 1340 1522 Linus Castaneda MD /nt
--- NOTE | 2020-05-24 14:49 | NUR ---
PT ADMITTED RELATED TO CELLULITIS. CM REVIEWED CHART AND SPOKE WITH CARE TEAM. CM MET WITH PT AT BEDSIDE THIS DAY. PT APPEARED TO BE A&O X4. CM ROLE INTRODUCED. PT INDICATED HE RESIDES IN A HOUSE ALONE WITH 2 STEPS TO ENTER AND NO STEPS HE USES INSIDE. PT INDICATED HE HAD A FWW AND A CANE. PT INDICATED NO SKILLED HX. PT INDICATED HE HAD HH IN THE RECENT PAST WITH [facility] 04/08/19. PT IS AWARE OR RECOMMENDATION FOR POST ACUTE CARE STAY AND IS RECEPTIVE. CM PROVIDED HIM A LIST FOR REVIEW. 5N I ALSO CONSULTED PT HAD BEEN THERE 4 OR 5 YEARS AGO. LOOKS LIKE ANGIOGRAM IS TO BE DONE TOMORROW. CM TO FOLLOW INDIATED WITH DC PLANNING.
--- NOTE | 2020-05-24 16:18 | NUR ---
PATIENT IS A CANDIDATE FOR ACUTE REHAB STAY. AUTHORIZATION PROCESSES INITIATED THIS DATE. NOW AWAITING CALL BACK FROM INSURANCE COMPANY TO PROVIDE FAX NUMBER TO SEND CLINICAL INFORMATION. PER PLOW HOLDER, CALL BACK WILL BE RECEIVED ON 05/25. INFORMATION IS PREPARED AND READY TO BE FAXED UPON RECEIPT OF NUMBER FROM INSURANCE COMPANY. INSURANCE INFORMED THAT PATIENT IS READY TO ADMIT TO REHAB ON 05/25/20. THANK YOU FOR THIS REFERRAL.
[2020-05-24 18:12] VITALS: BP 110/64
[2020-05-24 19:59] VITALS: BP 115/46
[2020-05-25 05:20] LABS: INR 1.8; PROTIME 19.1 Seconds (9.3-11.4)
[2020-05-25 05:25] LABS: HEMATOCRIT 34.4 % (42.0-52.0); MCH 26.4 pg (26.0-34.0); MCHC 31.9 g/dL (28.0-37.0); MCV 82.7 fL (80.0-100.0); RBC 4.16 mil/uL (4.50-6.00); RDW 18.8 % (10.5-14.5); WBC 4.9 thou/uL (4.0-11.0)
[2020-05-25 05:51] LABS: CALCIUM 8.3 mg/dL (8.5-10.1); CREATININE 0.8 mg/dL (0.7-1.3); POTASSIUM 3.5 mmol/L (3.5-5.1)
--- NOTE | 2020-05-25 05:59 | NUR ---
A/O X4 WITH FORGETFULLNESS. UP WITH ASSIST X1 WITH WALKER AND GB. ROOM AIR. VSS. WOUND CARE COMPLETED TO LE. CURRENT DRSG IS C/D/I. NO C/O PAIN OR DISCOMFORT. PT ACCIDENTALLY DISCHARGED IV TO LEFT HAND. REMOVED WITH CATHETER INTACT. INCONTINENT OF URINE. NO BM THIS SHIFT.FALL PRECAUTIONS IN PLACE,CALL LIGHT IS WITHIN REACH. WILL CONTINUE TO MONITOR.
[2020-05-25 07:37] VITALS: BP 126/64
[2020-05-25 11:43] VITALS: BP 126/64
--- NOTE | 2020-05-25 11:51 | NUR ---
ASSUMED CARE OF PATIENT AT SHIFT CHANGE. ASSESSMENT CHARTED. MEDICATIONS HELD PER NPO STATUS. VITALS REMAIN STABLE. PATIENT IS ALERT TO SELF, PLACE BUT CONFUSED WITH TIME AND SITUATION, NEEDING CONSTANT REMINDING AND REDIRECTION. OT/PT WORKED W PATIENT. PATIENT NEEDED MANY CUES. PATIENT VOICED HUNGER BUT DENIED PAIN. WOUND DRESSINGS TAKEN OFF; INFECTIOUS DISEASE DOCTOR SAW PATIENT. PATIENT LEFT FOR ANGIOGRAM AT APPROX. 1030. PLAN IS FOR PATIENT TO TRANSFER TO CORONARY CARE UNIT POST PROCEDURE. AWAITING REPORT/UPDATE.
--- NOTE | 2020-05-25 12:33 | NUR ---
PT WENT FOR ANGIOGRAM THIS DAY. CARE TEAM INDICATED THAT PT MAY TRANSFER TO CCU POST PROCEDURE. 5N HAS SUBMITTED FOR AUTH FOR POSSIBLE ADMISSION. PT HAS A [facility] LIST FOR REVIEW IF 5N NOT AUTHORIZED. CM TO FOLLOW IN INDICATED.
--- NOTE | 2020-05-25 12:33 | HC ---
[facility] [place] [address] CONSULTATION Name: ELIZABETH GARCIA Room #: 464-P ADM IN M.R.#: [id number] Admission: 05/22/20 Attend Phys: Berny Key MD Discharge: Date of : 47 Report #: [id number] THIS REPORT FOR: cc: Basim Cates MD, Charles MD Althoff,Ulises Benton MD ~ DATE OF SERVICE: 05/23/2020 CHIEF COMPLAINT: Lower extremity cellulitis. HISTORY OF PRESENT ILLNESS: This is a 74-year-old male patient admitted to the Emergency Department from his [facility] for worsening bilateral lower extremity cellulitis. He has a history of type 2 diabetes mellitus and some evidence of peripheral vascular disease based on prior angiography. He has had some pain, swelling, redness. He is admitted for treatment with IV antibiotics. I have been asked to see him with regard to wound care. PAST MEDICAL HISTORY: Positive for type 2 diabetes mellitus, hyperlipidemia, peripheral vascular disease, atrial fibrillation requiring long-term anticoagulation, GERD, BPH, DJD, congestive heart failure. He has previous permanent pacemaker placement, previous right knee and right hip replacement, left hip replacement. SOCIAL HISTORY: The patient admits an occasional alcohol consumption. No history of tobacco use. FAMILY HISTORY: Positive for stomach cancer in his mother. ALLERGIES: SULINDAC and METFORMIN. MEDICATIONS: Include acetaminophen, aspirin, atorvastatin, famotidine, furosemide, glucagon, hydrocodone, ondansetron, Zosyn, tamsulosin, vancomycin, warfarin, glipizide, omeprazole, oxybutynin, pioglitazone, simvastatin. REVIEW OF SYSTEMS: CONSTITUTIONAL: The patient denies fever, chills or weight loss. NEUROLOGIC: The patient denies focal weakness, numbness or tingling. EYES: The patient denies visual changes, redness, or drainage. ENT: The patient denies earache, nasal drainage or sore throat. CARDIOVASCULAR: The patient denies chest pain, palpitations or diaphoresis. PULMONARY: The patient denies cough or shortness of breath. GASTROINTESTINAL: The patient denies nausea, vomiting, diarrhea or abdominal pain. ORTHOPEDIC: The patient complains of pain, swelling and redness of the lower extremities. [address] [address] CONSULTATION Name: ELIZABETH GARCIA Room #: 464-P ADM IN M.R.#: [id number] Admission: 05/22/20 Attend Phys: Berny Key MD Discharge: Date of : 46 Report #: [id number] Other systems in a 14-point review of systems are negative. PHYSICAL EXAMINATION: VITAL SIGNS: At this time include temperature 36.9, pulse 65, respiratory rate of 16, blood pressure 98/52. GENERAL: This is a somewhat chronically ill-appearing male patient who appears to be in minimal distress. HEENT: Head normocephalic. Nose and throat are clear. NECK: Supple. LUNGS: Diminished. HEART: Irregular without murmur. ABDOMEN: Soft, nontender. EXTREMITIES: Lower extremities demonstrate moderate warmth, erythema and some mild stasis dermatitis bilaterally, more redness and swelling on the left than the right. LABORATORY DATA: Include sodium 137, potassium 4.0, chloride 99, CO2 of 27, BUN 20, creatinine 1.0, glucose 114. Lactic acid 1.9, total bilirubin is 1.7, albumin 3.4. INR 1.3. White blood cell count 10.4 with a hemoglobin of 12.2, hematocrit of 38.3. CLINICAL IMPRESSION: 1. Cellulitis, bilateral lower extremities, left greater than right. 2. Peripheral arterial disease based on prior angiography with the current arterial Dopplers of low image quality. 3. Hyperlipidemia. 4. Diabetes type 2. RECOMMENDATIONS: At this point in time, the patient will be started on intravenous antibiotic therapy. Cultures have been obtained and are pending at this time. Recommend elevation of the legs presently. We will discuss the possibility of an angiogram with Interventional Radiology regarding his significant peripheral vascular disease. Recommend PRAFO boots for pressure prophylaxis, medical management of his hyperlipidemia and diabetes. I appreciate being asked to see him in consultation. <ELECTRONICALLY SIGNED> By: Ulises Wright MD 05/25/20 1233 [id number] Ulises Wright MD /nt
--- NOTE | 2020-05-25 13:33 | NUR ---
RECEIVED CALL BACK (THIS AM) FROM INSURANCE WITH FAX NUMBER TO SEND CLINICALS. CLINICAL INFORMATION SENT TO INSURANCE COMPANY. WILL AWAIT RESPONSE FOR EITHER AUTHORIZATION OR DENIAL TO ACUTE REHAB AUTHORIZATION REQUEST. UNKNOWN IF RESPONSE WILL COME PRIOR TO THURSDAY. THANK YOU FOR THIS REFERRAL.
--- NOTE | 2020-05-25 14:06 | NUR ---
AUTHORIZATION FOR ACUTE REHAB STAY DENIED BY INSURANCE. INSURANCE RECOMMENDED ALTERNATE LEVRL OF CARE - SNF. PEER TO PEER CAN BE PERFORMED IF DESIRED. NUMBER TO CALL TO [facility] FOR PEER TO PEER IS BY 11:00 [employer] [employer] CONSULTANT ON MAY 30, 2020. PIN DRAFTER INFORMED OF DECISION. THANK YOU FOR THIS REFERRAL.
--- NOTE | 2020-05-25 15:50 | NUR ---
CM NOTIFIED THAT INSURANCE DENIED AUTH FOR ACUTE REAHB ON 5N. PT IS OFF UNIT FOR ANGIOGRAM. CM HAD PROVIDED PT WITH A [employer] SNF LIST TO REVIEW FOR BACKUPS. CM TO FOLLOW UP WITH PT TO SEE WHERE HE WANTS REFERRALS SENT FOR SHORT TERM SKILLED POST ACUATE CARE PLACEMENT.
[2020-05-25 16:49] VITALS: BP 131/57
--- NOTE | 2020-05-25 17:55 | NUR ---
PATIENT ARRIVED TO UNIT AT APPROX. 1641. STILL CONFUSED AND DISORIENETED NEEDING REDIRECTION. SITE ON R FEMUR C/D/I NO TENDERNESS OR PAIN VOICED. PATIENT TOLERATING DINNER WELL. WILL CONTINUE TO MONITOR AND ENDORSE TO NOC RN
[2020-05-25 20:45] VITALS: BP 128/70
--- NOTE | 2020-05-26 02:24 | NUR ---
PT CARE ASSUMED WITH PT IN BED.PT IS ALERT AND CONFUSE.PT MOVED FROM 464 TO ROOM 452 CLOSE TO NURSING STATION PT TRYING TO GET OUT OF BED AND REMOVE IV .PT HAS REDNESS ON STEVE LE OPEN TO AIR.PT INCONTINENT TO BLADDER.PT HAD ANGIOGRAM YESTERDAY AND SITE NON TENDER,NO SWELLING AND NO BLEEDING.DRESSING C/D/I.PT IS ACCUCHECK ACHS WITH LOW SSI.WILL CONTINUE TO MONITOR PER POC
[2020-05-26 05:46] LABS: HEMATOCRIT 33.8 % (42.0-52.0); HEMOGLOBIN 10.7 gm/dL (14.0-18.0); MCH 25.9 pg (26.0-34.0); MCHC 31.6 g/dL (28.0-37.0); MCV 81.9 fL (80.0-100.0); RBC 4.13 mil/uL (4.50-6.00); RDW 18.2 % (10.5-14.5); WBC 4.7 thou/uL (4.0-11.0)
[2020-05-26 05:53] LABS: CALCIUM 8.5 mg/dL (8.5-10.1); CREATININE 0.7 mg/dL (0.7-1.3); POTASSIUM 3.7 mmol/L (3.5-5.1)
[2020-05-26 06:06] LABS: INR 1.9; PROTIME 20.7 Seconds (9.3-11.4)
[2020-05-26 07:40] VITALS: BP 123/75
[2020-05-26 12:36] VITALS: BP 123/75
--- NOTE | 2020-05-26 13:40 | NUR ---
ASSUMED CARE OF THIS PATIENT AFTER REPORT. ASSESSMENT CHARTED. MEDICATIONS ADMINISTERED PER EMAR. VSS. PATIENT IS A&OX3-4 AND APPEARS LESS CONFUSED THAN YESTERDAY. STILL FORGETFUL; ASKING WHERE HE IS AT AND ASKING WHERE HIS WALLET IS. WALLET WAS LOCATED AND WITH PATIENT. PATIENT IS INCONINENT OF URINE MOST OF THE TIME BUT DOES USE URINAL AT TIMES. PATIENT WAS BLADDER SCANNED W 0MLS POST VOID. PROVIDER WAS INFORMED. DENIES PAIN OR DISCOMFORT. REQUESTED TO HAVE TV CHANNEL CHANGED. LESS IMPULSIVITY THIS SHIFT. BED ALARM AND NSS FOR SUPERVISION. ABX INFUSING ON R FA W NO ISSUES. WILL CONTINUE TO MONITOR THIS PATIENT.
[2020-05-26 15:27] LABS: URINE BILIRUBIN NEGATIVE (Negative); URINE BLOOD NEGATIVE (Negative); URINE CLARITY CLEAR; URINE COLOR YELLOW; URINE GLUCOSE-RANDOM* NEGATIVE (Negative); URINE KETONES NEGATIVE (Negative); URINE LEUKOCYTES-REFLEX NEGATIVE (Negative); URINE NITRITE-REFLEX NEGATIVE (Negative); URINE PROTEIN (DIPSTICK) NEGATIVE (Negative)
[2020-05-26 20:25] VITALS: BP 139/66
--- NOTE | 2020-05-27 05:33 | NUR ---
Assumedd pt care at 1900. A/OX4 with forgetfulness noted,VSS. Denies pain on assessment,up with AX1 RW/GB. Incontinent of bladder this shift,pericare done as needed and moisture barrier applied as needed;redness on perirectal area noted.. Pt repositioned Q2 hrs,on a SINAN mattress. Drsg on right groin C/D/I, no bogginess noted. Resting quietly at this time with no distress noted,will continue to monitor pt.
[2020-05-27 06:11] LABS: INR 1.9; PROTIME 20.7 Seconds (9.3-11.4)
[2020-05-27 06:47] LABS: ABSOLUTE NEUTROPHILS 4.5 thou/uL (1.4-8.2); BASOPHILS 0.5 % (0.0-2.0); EOSINOPHILS 1.9 % (0.0-3.0); HEMATOCRIT 33.7 % (42.0-52.0); HEMOGLOBIN 10.5 gm/dL (14.0-18.0); LYMPHOCYTES 12.5 % (24.0-44.0); MCH 25.8 pg (26.0-34.0); MCV 83.2 fL (80.0-100.0); MONOCYTES 10.1 % (1.0-8.0); PLATELET COUNT 148 thou/uL (150-400); RBC 4.06 mil/uL (4.50-6.00); RDW 18.7 % (10.5-14.5); WBC 5.9 thou/uL (4.0-11.0)
[2020-05-27 07:04] LABS: CALCIUM 8.2 mg/dL (8.5-10.1); CREATININE 0.6 mg/dL (0.7-1.3); PHOSPHORUS 2.5 mg/dL (2.6-4.7); POTASSIUM 3.9 mmol/L (3.5-5.1)
[2020-05-27 07:12] VITALS: BP 122/60
--- NOTE | 2020-05-27 15:50 | NUR ---
ASSESSMENT CHARTED. PT ALERT AND ORIENTED WITH FORGETFULNESS. PLEASANT AND COOPERATIVE WITH CARES. DENIED HAVING PAIN OR DISCOMFORT. VSS. WOUND CARE PROVIDED. NO CONCERNS AT THIS TIME.
[2020-05-27 17:11] VITALS: BP 127/61
[2020-05-27 19:26] VITALS: BP 124/77
[2020-05-28 05:41] LABS: INR 1.9; PROTIME 20.9 Seconds (9.3-11.4)
[2020-05-28 07:10] VITALS: BP 129/55
--- NOTE | 2020-05-28 11:11 | NUR ---
CM FOLLOWED UP WITH PT AT BEDSIDE THIS AM. CM INDICATED THAT HIS INSURANCE DENIED AUTH FOR 5N ACUTE INPATIENT REHAB. CM PROVIDED PT WITH ANOTHER [employer] SNF LIST AND ASKED THAT HE INDICATED WHERE HE WOULD LIKE REFERRALS SENT FOR SHORT TERM SKILLED STAY.
--- NOTE | 2020-05-28 11:12 | NUR ---
Received awake on bed. Due medications given as prescribed, able to swallow meds w/o difficulty. On room air. Vital signs stable. On MS, not on telemetry; no complains and signs of chest pain, crushing sensation and heaviness. Assisted in ADLs. On 2 gm Na diet- tolerating well; assisted in eating and drinking; no nausea, no vomiting and no abdominal pain. With on and off incontinence; able to use urinal at times; checked frequently and changed as needed. Falls bundle in place. With bilateral leg cellulitis, dressing in place; kept elevated. With SL at R AC and L FA- on IV antibiotics. To continue monitoring patient. Patient seen and examined by Dr Key, possible discharge today- CM aware; Covid swab done. Pt seen and examined by PT, tolerated session well; able to sit out on the chair.
--- NOTE | 2020-05-28 13:48 | NUR ---
FAXED REFERRAL TO [facility] RECEIVED CONFIRMATIN AND SPOKE WITH RADHA IN ADM SHE WILL REVIEW.
[2020-05-28 15:44] VITALS: BP 112/55; BP 130/47
[2020-05-28 19:22] VITALS: BP 118/52
--- NOTE | 2020-05-29 03:46 | NUR ---
PT IS A/O X4 WITH SOME FORGETFULLNESS. CONFUSION INCREASES AT NOC. ROOM AIR. MS STATUS. INCONTINENT OF BOWEL AND BLADDER. DRSGS TO ERIN ARE C/D/I. REFUSES PRAFO BOOTS THIS NOC. FALL PRECAUTIONS IN PLACE, CALL LIGHT IS WITHIN REACH. WILL CONTINUE TO MONITOR.
[2020-05-29 05:10] LABS: INR 2.6; PROTIME 27.6 Seconds (9.3-11.4)
[2020-05-29 08:10] VITALS: BP 128/61
[2020-05-29] MEDS ORDERED: MINOCYCLINE 5050 M1 PO (12:03)
--- NOTE | 2020-05-29 13:15 | NUR ---
AUTH WAS RECEIVED FOR PT TO GO TO [facility] THIS DAY. CARE TEAM INDICATED THAT PT IS MEDCIALLY STABLE TO DISCHARGE. CM NOTIFIED PT AND HE IS AWARE AND AGREEABLE. CHART COPY MADE. ORDERS FAXED. NURSE GIVEN NUMBER FOR REPORT. [facility] TRANSPORT ARRANGED FOR 1500. NO OTHER CM INTERVENTION INDICATED. CASE CLOSED.
[2020-05-29 14:50] VITALS: BP 121/77
--- NOTE | 2020-05-29 19:43 | NUR ---
Received awake on bed. Due medications given as prescribed, able to swallow meds w/o difficulty. On room air. Vital signs stable. On MS, not on telemetry; no complains and signs of chest pain, crushing sensation and heaviness. Assisted in ADLs. On 2gm Na diet- tolerating well; no nausea, no vomiting and no abdominal pain noted. With on and off incontinence- checked frequently and changed as needed. With bilateral lower extremity cellulitis- dressing C/D/I; dressing changed today, photo taken; kept elevated; prafo boots in place. With SL at R AC and L FA- on IV antibiotics. Falls bundle in place. Complained of pain, due PRN pain meds given as prescribed. To continue monitoring patient. Pt seen and examined by Dr Key this AM, possible discharge- CM aware; a/w insurance authorization. CM advised, authorization obtained- Dr Key aware as well. Discharge orders made. Transport picker packer at 1400- moved to 1500. Discharge instructions, follow up schedule given and instructed. Discharge forms signed. IV discontinued. No telemetry noted. Pt fetched by transport staff; chart copy given. Brought out of the unit with his personal belongings via wheelchair. Report given to Giovany- given emphasis on pt's follow up with Dr Cruz on June. Patient discharged.
== END 2020-05-29 17:16 | DRG 253 ==
LOC: ER 18:06 → 4W 20:45 → EROBS 20:45 → 4W 21:33
PROVIDERS: Emergency Medicine; Internal Medicine; Nurse Practitioner; Nurse Practitioner Family; ADMIT Hospitalist; ATTEND Hospitalist
PROC: B4101ZZ Fluoroscopy of Abdominal Aorta using Low Osmolar Contrast (ICD-10-PCS; principal; 2020-05-25)
PROC: B41F1ZZ Fluoroscopy of Right Lower Extremity Arteries using Low Osmolar Contrast (ICD-10-PCS; principal; 2020-05-25)
PROC: B41G1ZZ Fluoroscopy of Left Lower Extremity Arteries using Low Osmolar Contrast (ICD-10-PCS; principal; 2020-05-25)
PROC: 047Q3ZZ Dilation of Left Anterior Tibial Artery, Percutaneous Approach (ICD-10-PCS; principal; 2020-05-25)
PROC: B4181ZZ Fluoroscopy of Bilateral Renal Arteries using Low Osmolar Contrast (ICD-10-PCS; principal; 2020-05-25)
DX: E11.51 Type 2 diabetes mellitus with diabetic peripheral angiopathy without gangrene (principal); L03.115 Cellulitis of right lower limb; L03.116 Cellulitis of left lower limb; E46 Unspecified protein-calorie malnutrition; I48.20 Chronic atrial fibrillation, unspecified; G93.40 Encephalopathy, unspecified; I70.202 Unspecified atherosclerosis of native arteries of extremities, left leg; M19.90 Unspecified osteoarthritis, unspecified site; I50.9 Heart failure, unspecified; I83.12 Varicose veins of left lower extremity with inflammation; E53.8 Deficiency of other specified B group vitamins; N40.0 Benign prostatic hyperplasia without lower urinary tract symptoms; I83.11 Varicose veins of right lower extremity with inflammation; N32.81 Overactive bladder; E78.5 Hyperlipidemia, unspecified; K21.9 Gastro-esophageal reflux disease without esophagitis; E55.9 Vitamin D deficiency, unspecified; Z96.643 Presence of artificial hip joint, bilateral; Z60.2 Problems related to living alone; Z96.651 Presence of right artificial knee joint; Z20.822 Contact with and (suspected) exposure to COVID-19; Z68.31 Body mass index [BMI] 31.0-31.9, adult; Z79.899 Other long term (current) drug therapy; Z79.01 Long term (current) use of anticoagulants; Z79.84 Long term (current) use of oral hypoglycemic drugs; Z88.8 Allergy status to other drugs, medicaments and biological substances; Z87.891 Personal history of nicotine dependence
CPT/HCPCS: 10045; 10047

== ENCOUNTER 2020-06-19 13:06 | Inpatient (IN) | payer OTHER ==
[~2020-06-19] VITALS: Ht 180.3 cm; Wt 94.4 kg
[~2020-06-19 13:06] MED LIST changes: +ASA81BEC PO; +MINOCYCLINE 5050 M1 PO; +TYLENOL325 M1 PO
[2020-06-19 13:07] VITALS: BP 106/61
[2020-06-19 13:45] LABS: ABSOLUTE NEUTROPHILS 9.5 thou/uL (1.4-8.2); BASOPHILS 0.2 % (0.0-2.0); EOSINOPHILS 0.3 % (0.0-3.0); HEMATOCRIT 35.8 % (42.0-52.0); HEMOGLOBIN 11.4 gm/dL (14.0-18.0); LYMPHOCYTES 4.8 % (24.0-44.0); MCHC 31.9 g/dL (28.0-37.0); MCV 81.5 fL (80.0-100.0); MONOCYTES 7.5 % (1.0-8.0); PLATELET COUNT 149 thou/uL (150-400); POLYS 87.2 % (36.0-66.0); RDW 18.7 % (10.5-14.5); WBC 10.9 thou/uL (4.0-11.0)
[2020-06-19 14:07] LABS: CALCIUM 9.1 mg/dL (8.5-10.1); CREATININE 0.8 mg/dL (0.7-1.3); POTASSIUM 3.6 mmol/L (3.5-5.1)
[2020-06-19 14:11] LABS: DIRECT BILIRUBIN 0.7 mg/dL (<0.1-0.2); TOTAL BILIRUBIN 1.6 mg/dL (0.2-1.0)
[2020-06-19 15:12] LABS: ANISOCYTOSIS 1+; PLATELET ESTIMATE NORMAL
[2020-06-19 15:16] LABS: APTT 48.7 Seconds (24.5-32.8); INR 2.7; PROTIME 27.8 Seconds (9.3-11.4)
[2020-06-19 16:51] LABS: URINE BILIRUBIN NEGATIVE (Negative); URINE BLOOD TRACE (Negative); URINE CLARITY CLEAR; URINE COLOR YELLOW; URINE GLUCOSE-RANDOM* NEGATIVE (Negative); URINE KETONES 1+ (Negative); URINE LEUKOCYTES-REFLEX NEGATIVE (Negative); URINE NITRITE-REFLEX NEGATIVE (Negative); URINE PROTEIN (DIPSTICK) TRACE (Negative); URINE SPECIFIC GRAVITY 1.025 (1.005-1.035)
[2020-06-19 18:42] VITALS: BP 119/64
[2020-06-19 18:59] LABS: FOLIC ACID 9.2 ng/mL (8.6-58.9)
--- NOTE | 2020-06-19 18:59 | NUR ---
SPOKE WITH KT MITTAL WITH [facility] OF SENIOR [facility] [phone] EMS HAD REPORTED PT'S LIVING CONDITIONS, KT WAS ALREADY AWARE OF SITUATION.
[2020-06-19 19:40] VITALS: BP 131/58
[2020-06-20] VITALS (9 sets, daily range): BP systolic 98–141; BP diastolic 45–65
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
[2020-06-20 05:56] LABS: INR 2.8; PROTIME 29.3 Seconds (9.3-11.4)
[2020-06-20 05:59] LABS: ABSOLUTE NEUTROPHILS 6.8 thou/uL (1.4-8.2); BASOPHILS 0.3 % (0.0-2.0); EOSINOPHILS 1.1 % (0.0-3.0); HEMATOCRIT 30.6 % (42.0-52.0); HEMOGLOBIN 9.9 gm/dL (14.0-18.0); LYMPHOCYTES 8.1 % (24.0-44.0); MCH 26.4 pg (26.0-34.0); MCHC 32.5 g/dL (28.0-37.0); MCV 81.4 fL (80.0-100.0); MONOCYTES 8.6 % (1.0-8.0); PLATELET COUNT 127 thou/uL (150-400); POLYS 81.9 % (36.0-66.0); RBC 3.76 mil/uL (4.50-6.00); RDW 18.2 % (10.5-14.5); WBC 8.3 thou/uL (4.0-11.0)
[2020-06-20 06:32] LABS: CALCIUM 8.3 mg/dL (8.5-10.1); CREATININE 0.6 mg/dL (0.7-1.3); MAGNESIUM 1.8 mg/dL (1.8-2.4); POTASSIUM 3.3 mmol/L (3.5-5.1)
--- NOTE | 2020-06-20 07:06 | EKG ---
[address] [address] ELECTROCARDIOGRAM REPORT Name: RADHAELIZABETH Gandhi Room #: 443-P ADM IN M.R.#: [id number] Admission: 06/19/20 Attend Phys: Joao Kyle MD Discharge: Date of : 47 Report #: [id number] [facility] ED Test Date: 2020-06-19 Test Time: 13:19:54 Pat Name: ELIZABETH GARCIA Department: Room: 443 Gender: M Division Traffic Superintendent: SAMI : 1945 Requested By: Jalil Lim Order Number: [id number] MD: Thee Ba Measurements Intervals [place] Rate: 65 P: 0 CT: 62 QRS: -54 QRSD: 160 T: 125 QT: 465 QTc: 484 Interpretive Statements Ventricular-paced complexes No further rhythm analysis attempted due to paced rhythm Left bundle branch block Compared to ECG 05/22/2020 18:42:29 Left bundle-branch block now present Electronically Signed On 06-20-2020 7:05:49 CDT by Thee Ba [email or web address] <ELECTRONICALLY SIGNED> By: Thee Ba MD, FACC 06/20/20 0705 1319 1319 Thee Ba MD, FAC /EPI
--- NOTE | 2020-06-20 14:01 | NUR ---
ASSESSMENT: CM REVIEWED CHART AND SPOKE WITH PATIENT. PT WAS ADMITTED DUE TO CELLULITIS/WEAKNESS. PT ADMITS FROM HOME WHERE HE WAS IN SERVICES WITH [facility]. PT JUST RECENTLY DISCHARGED FROM [facility] ON MONDAY 06/19. [facility] STATING THEY HAD SOME CONCERNS ABOUT HIM BEING AT HOME. CM RECEIVED A CALL FROM SETH MARIE [phone] WITH [facility] STATING THERE IS AN OPEN INVESTIGATION WITH THIS PATIENT. SETH REQUEST TO BE UPDATED WITH THE DISCHARGE PLAN. CM FAXED UPDATED CLINICAL TO [facility]. CM ALSO SPOKE WITH PT WHO REPORTS THAT HE LIVES AT HOME ALONE. PT STATING THAT HE HAS A CANE AND WALKER TO ASSIST WITH AMBULATION. PT REPORTS FEELING WEAK AT HOME. CM DISCUSSED LIKELY NEED FOR POST ACUTE CARE. PT STATES HE WOULD BE AGREEABLE BUT DOES NOT WANT TO RETURN TO [facility]. THERE IS A CONSULT IN FOR 5N TO EVAL. CM NOTIFIED LIASON OF SITUATION. CONSULT ALSO PLACED FOR ID AND WOUND CARE. CM WILL CONTINUE TO FOLLOW TO ASSIST NEEDED.
--- NOTE | 2020-06-20 20:14 | NUR ---
A/O, calm and pleasant; denied pain, no n/v. tolerated NPO well for the procedure. stayed with head of bed at 35 degree for over 2 hours.
--- NOTE | 2020-06-21 04:51 | NUR ---
PT AOX4. PT DENIES PAIN AND SOB AT REST WHILE ON ROOM AIR. PT HAS PRN PO APAP Q4HR AVAILABLE. PT TOLERATING PO INTAKE OF FLUIDS WITH PO MEDICATION ADMINISTRATION. PT WITHOUT NAUSEA OR EMESIS. PT INCONTINENT OF BLADDER AND BOWEL, REFUSING PERICARE. PT RESTING IN BED THROUGHOUT SHIFT, FREQUENT REPOSITIONING ENCOURAGED. PT REFUSING REPOSITIONING DUE TO REPORTS OF COMFORT. PT ENCOURAGED TO NOTIFY STAFF FOR ALL NEEDS, CALL LIGHT WITHIN REACH, BED ALARM ON, BED LOCKED IN LOWEST POSITION, FREQUENT MONITORING WILL CONTINUE.
[2020-06-21 06:01] LABS: INR 2.9; PROTIME 30.3 Seconds (9.3-11.4)
[2020-06-21 07:50] VITALS: BP 131/59
[2020-06-21 09:05] LABS: HEMATOCRIT 30.6 % (42.0-52.0); HEMOGLOBIN 9.7 gm/dL (14.0-18.0); MCHC 31.6 g/dL (28.0-37.0); MCV 82.3 fL (80.0-100.0); RBC 3.72 mil/uL (4.50-6.00); RDW 19.1 % (10.5-14.5); WBC 7.4 thou/uL (4.0-11.0)
[2020-06-21 09:18] LABS: CREATININE 0.7 mg/dL (0.7-1.3); POTASSIUM 3.1 mmol/L (3.5-5.1)
--- NOTE | 2020-06-21 10:18 | 2DMMODE ---
[facility] [place] [address] 2 D/M-MODE ECHOCARDIOGRAM Name: ELIZABETH GARCIA Oksana Room #: 443-P ADM IN M.R.#: [id number] Admission: 06/19/20 Attend Phys: Joao Kyle MD Discharge: Date of : 47 Report #: [id number] THIS REPORT FOR: cc: Basim Cates MD, Charles MD Santiago, Patrick MD [facility] ~ ADDENDUM APPROVED REPORT Study performed: 06/21/2020 08:14:41 EXAM: Comprehensive 2D, Doppler, and color-flow Echocardiogram Patient Location: Bedside Room #: 443 Status: routine BSA: 2.15 HR: 65 bpm BP: 98/45 mmHg Rhythm: Pacemaker Other Information Study Quality: Adequate/flat on back Indications Leg swelling, History of CHF Hx: Afib, pacemaker, PAD, DM, HLP. 2D Dimensions RVDd: 45.10 mm IVSd: 13.15 (7-11mm) LVOT Diam: 22.50 (18-24mm) LVDd: 43.17 mm PWd: 12.81 (7-11mm) Ascending Ao: 37.86 (22-36mm) LVDs: 30.83 (25-40mm) Left Atrium: 47.09 (27-40mm) Aortic Root: 35.84 mm Volumes Left Atrial Volume (Systole) Single Plane 4CH: 89.94 mL Single Plane 2CH: 80.78 mL LA ESV Index: 43.00 mL/m2 Aortic Valve AoV Peak Sharan.: 2.73 m/s AO Peak Gr.: 29.78 mmHg LVOT Max P.68 mmHg AO Mean Gr.: 16.69 mmHg [facility] [address] [place] [address] 2 D/M-MODE ECHOCARDIOGRAM Name: ELIZABETH GARCIA Room #: 443-[facility] IN [facility].#: [id number] Admission: 06/19/20 Attend Phys: Joao Kyle, Discharge: Date of : 47 Report #: [id number] AO V2 Mean: 1.91 m/s LVOT Max V: 0.96 m/s AO V2 VTI: 59.02 cm LISSET Vmax: 1.40 cm2 Mitral Valve MV Decel. Time: 157.84 ms MV E Max Sharan.: 1.04 m/s Pulmonary Valve PV Peak Sharan.: 0.78 m/s PV Peak Gr.: 2.41 mmHg Tricuspid Valve TR Peak Sharan.: 2.38 m/s RAP Estimate: 10.00 mmHg TR Peak Gr.: 23.00 mmHg PA Pressure: 43.00 mmHg Left Ventricle The left ventricle is normal size. There is normal LV segmental wall motion. Mild concentric left ventricular hypertrophy. Left ventricular systolic function is normal. LVEF is 55-60%. This study is not technically sufficient to allow evaluation of the LV diastolic function. Right Ventricle Right ventricle is mildly dilated. The right ventricular systolic function is normal. Atria Left atrium is moderately dilated. The right atrium size is normal. Pacemaker lead is present in the right atrium. Aortic Valve Aortic valve is moderately calcified, trileaflet. No aortic regurgitation is present. There is mild-moderate valvular aortic stenosis. Calculated aortic valve area is 1.4 cm2 (Peak gradient of 30 mmHg, mean pressure gradient of 17 mmHg). Mitral Valve The mitral valve is normal in structure. Mild mitral regurgitation. No evidence of mitral valve stenosis. Tricuspid Valve The tricuspid valve is normal in structure. Mild to moderate tricuspid regurgitation. Estimated PAP is 30mmHg[place] [address] 2 D/M-MODE ECHOCARDIOGRAM Name: MISAMEGANDIDIELIZABETH Room #: 443-P [facility] IN .R.#: [id number] Admission: 06/19/20 Attend Phys: Joao Kyle, Discharge: Date of : 47 Report #: [id number] The pulmonary valve is normal in structure. Trace pulmonic regurgitation. Great Vessels The aortic root is normal in size. The ascending aorta is borderline dilated. IVC is dilated and collapses <50% with inspiration. Pericardium There is no pericardial effusion. <Conclusion> Left ventricular systolic function is normal. There is normal LV segmental wall motion. LVEF is 55-60%. Right ventricle is mildly dilated. Left atrium is moderately dilated. Pacing wires seen. Aortic valve is moderately calcified, trileaflet. Mild-moderate stenosis, no insufficiency Calculated aortic valve area is 1.4 cm2 (Peak gradient of 30 mmHg, mean pressure gradient of 17 mmHg). The mitral valve is normal in structure. Mild mitral regurgitation. Mild to moderate tricuspid regurgitation. Estimated pulmonary artery pressure of 43 mmHg There is no pericardial effusion. <ELECTRONICALLY SIGNED> By: Thee Ba MD, FACC 06/21/20 1017 1017 101 Thee Ba MD, FACC /INF
--- NOTE | 2020-06-21 14:29 | NUR ---
Patient reports when he dc home from [facility] he sat at home until HH RN arrived. he reports he could not stand. Discussed post acute care. Patient interested in referral to [facility]. Acute Rehab 5N declined patient.
[2020-06-21 15:55] VITALS: BP 93/53
--- NOTE | 2020-06-21 16:17 | NUR ---
FAXED REFERRAL TO [facility]. WILL CONFIRM WITH ELVIN/LIAISON THAT THEY RECEIVED AND BED AVAILABILITY. [facility] P [phone]; [facility]VIN[facility]Lia FAX [phone]; Arthur [phone] ADDRESS: [address] [place] [address], [facility] [id number]
--- NOTE | 2020-06-21 18:39 | NUR ---
A/O, calm and cooperative. denied pain, no n/v. wound care team saw the patinet later afternoon.
[2020-06-21 18:51] VITALS: BP 117/58
--- NOTE | 2020-06-22 03:55 | NUR ---
ASSUMED PT CARE AT 1900.PT DENIED PAIN,N/V SO FAR.BLE CELLULITIS/EDEMA NOTED.AMMONIUM CREAM TO LEGS,FEET ELEVATED.PT CONT ON IV ABX ORDERED.UP WITH ASSIST X1.PT ABLE TO MAKE HIS NEEDS KNOWN.CALL LIGHT WITHIN REACH.
[2020-06-22 04:44] LABS: PROTIME 31.4 Seconds (9.3-11.4)
[2020-06-22 08:10] VITALS: BP 108/71
--- NOTE | 2020-06-22 09:11 | HC ---
[facility] [place] [address] CONSULTATION Name: ELIZABETH GARCIA Room #: 443-P ADM IN M.R.#: [id number] Admission: 06/19/20 Attend Phys: Joao Kyle MD Discharge: Date of : 47 Report #: [id number] THIS REPORT FOR: cc: Basim Cates MD,Basim Castaneda,Linus Quintero MD ~ DATE OF SERVICE: 06/21/2020 INFECTIOUS DISEASE CONSULTATION ATTENDING PHYSICIAN: Dr. Kyle. REASON FOR EVALUATION: Right lower extremity inflammatory eruption, likely multifactorial with component of skin and soft tissue infection and cellulitis. HISTORY OF PRESENT ILLNESS: Chart reviewed, patient examined. This is a 74-year-old known to myself, who was actually discharged from the hospital fairly recently. Has bilateral lower extremity inflammatory eruption, felt to be likely multifactorial including venous stasis insufficiency with dermatitis. He apparently went to a facility and was deemed ready to be discharged within the last day or two prior to his readmission, had basically gone home and sat in the chair and states he was too weak to move and complained of increasing pain associated in particular with his right lower extremity distally, perhaps more focally on the second toe. It is not clear if he had any fevers or chills. He states his appetite has been blunted. No pulmonary or gastrointestinal related complaints. On evaluation, lactic acid was borderline elevated at 2.0. Procalcitonin was 0.21. Chest x-ray showed no acute process. Venous Doppler showed no evidence of right lower extremity DVT. Urinalysis was otherwise unremarkable. Concerned about possible infectious complication. He was admitted and underwent venogram, which was otherwise unremarkable. Blood cultures are sterile thus far. He was empirically started on vancomycin. He notes he has still persistent pain, maybe slightly less. ALLERGIES: LISTED TO METFORMIN, SULINDAC, LATEX. CURRENT MEDICATIONS: Include oxybutynin, atorvastatin, aspirin, tamsulosin, glipizide XL, potassium chloride, finasteride, oxybutynin, furosemide, pantoprazole, warfarin, and vancomycin. PAST MEDICAL HISTORY: Diabetes mellitus type 2, degenerative joint disease, atrial fibrillation, hyperlipidemia, and some mild dementia. SOCIAL/FAMILY HISTORY: Available in chart. REVIEW OF SYSTEMS: Otherwise, unremarkable. [address] [address] CONSULTATION Name: ELIZABETH GARCIA Room #: 443-P [facility] IN .R.#: [id number] Admission: 06/19/20 Attend Phys: Joao Kyle MD Discharge: Date of : 47 Report #: [id number] PHYSICAL EXAMINATION: GENERAL: Appears somewhat chronically ill and undernourished, sitting in a chair, mildly encephalopathic. VITAL SIGNS: Temperature 98, pulse 63, respirations 16, blood pressure 131/59. SKIN: Warm, dry, no rashes. HEENT: Normocephalic. Extraocular muscles intact. NECK: Supple. LUNGS: Clear to auscultation. HEART: Regular. Borderline bradycardic. I do not appreciate a murmur. ABDOMEN: Distended, moderately obese, somewhat firm, nontender. EXTREMITIES: Bilateral lower extremities have changes suggest venous stasis insufficiency with dermatitis. There is some asymmetry with swelling greater on the right. Also has moderate inflammatory superficial signs, again more evident on the right particular dorsal foot as well as the second toe is quite tender to palpation. There are no bullous lesions, no ulcers, no fluctuance. GENITOURINARY AND RECTAL: Deferred. LABORATORY DATA: Echo, EF of 55%-60%. Moderately calcified aortic valve, [id number] stenosis. Estimated pulmonary artery pressure of 43. No effusion. BNP elevated at 1544. Electrolytes: Sodium 135, potassium 3.1, chloride 101, bicarbonate is 29, anion gap of 5, BUN and creatinine 15 and 0.7, glucose of 84. CBC: White count 7.4, H and H 9.7 and 30.6, platelet count of 122. Blood cultures sterile thus far. Vancomycin trough of 15. ASSESSMENT: Right lower extremity inflammatory eruption, likely multifactorial including component of skin and soft tissue infection with cellulitis. Agree with empiric therapy. Vancomycin should cover statistically likely Staph or strep. Continue elevation. At this point, he is too exquisitely tender to utilize compression, but that would be an option going forward. Seemingly, he is unable to actually live independently at least until he makes improvements in his overall strength. We will monitor expectantly. Continue supportive care. <ELECTRONICALLY SIGNED> By: Linus Castaneda MD 06/22/20 0911 1445 1751 Linus Castaneda MD /nt
[2020-06-22 14:53] VITALS: BP 123/53
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
--- NOTE | 2020-06-22 22:43 | NUR ---
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
[2020-06-23 03:12] VITALS: BP 114/66
[2020-06-23 04:58] LABS: INR 2.5; PROTIME 26.3 Seconds (9.3-11.4)
[2020-06-23 09:50] LABS: CALCIUM 8.8 mg/dL (8.5-10.1); CREATININE 0.8 mg/dL (0.7-1.3); MAGNESIUM 1.7 mg/dL (1.8-2.4); POTASSIUM 3.3 mmol/L (3.5-5.1)
[2020-06-23 10:50] LABS: HEMATOCRIT 31.7 % (42.0-52.0); HEMOGLOBIN 10.1 gm/dL (14.0-18.0); MCH 26.1 pg (26.0-34.0); MCV 81.6 fL (80.0-100.0); RBC 3.88 mil/uL (4.50-6.00); RDW 18.6 % (10.5-14.5); WBC 9.1 thou/uL (4.0-11.0)
--- NOTE | 2020-06-23 18:30 | NUR ---
PT ASSESSED AT START OF SHIFT. LE ELEVATED AND COMPRESSING TUBAGRIP IN PLACE. NO C/O PAIN. EATING CHOCOLATE NUTRITION BARS THIS AM AND ACCUCHECK ELEVATED AT LUNCH. APPETITE IS VERY GOOD. DR. PILLAI IN TO SEE PT.
[2020-06-23 19:40] VITALS: BP 98/42
[2020-06-24 04:10] VITALS: BP 109/55
--- NOTE | 2020-06-24 05:35 | NUR ---
PT LYING IN BED. TYLENOL PROVIDING PAIN RELIEF. INCONTINENT. RESTING COMFORTABLY. NO NEEDS VOICED. CALL LIGHT WITHIN REACH. FREQUENT OBSERVATION.
[2020-06-24 05:37] LABS: HEMOGLOBIN 10.3 gm/dL (14.0-18.0); MCH 26.2 pg (26.0-34.0); MCHC 32.1 g/dL (28.0-37.0); MCV 81.6 fL (80.0-100.0); RBC 3.92 mil/uL (4.50-6.00); RDW 18.5 % (10.5-14.5); WBC 7.1 thou/uL (4.0-11.0)
[2020-06-24 05:42] LABS: INR 1.7; PROTIME 18.4 Seconds (9.3-11.4)
[2020-06-24 05:45] LABS: CALCIUM 8.6 mg/dL (8.5-10.1); CREATININE 0.8 mg/dL (0.7-1.3); MAGNESIUM 2.1 mg/dL (1.8-2.4); POTASSIUM 3.7 mmol/L (3.5-5.1)
[2020-06-24 07:45] VITALS: BP 93/59
[2020-06-24 16:20] VITALS: BP 139/71
[2020-06-24 19:14] VITALS: BP 124/66
--- NOTE | 2020-06-24 20:26 | NUR ---
PT DOING BETTER STRENGTH BETTER. EDEMA ALMOST GONE IN LE. EATING AND DRINKING WELL. NO C/O PAIN.
[2020-06-25 04:10] VITALS: BP 114/67
[2020-06-25 04:56] LABS: INR 1.7; PROTIME 18.1 Seconds (9.3-11.4)
--- NOTE | 2020-06-25 06:03 | NUR ---
PT OBSERVED LYING ON HIS BED AT SHIFT CHANGE.TUBIGRIB IN PLACE ON HIS BLE. EDEMA BETTER ON HIS R LEG.PT NOT COPERATIVE WITH CARE.PT REF REPOSITIONING.NO BM THIS SHIFT.CALL LIGHT WITHIN REACH.
[2020-06-25 07:30] VITALS: BP 92/38
[2020-06-25 08:00] VITALS: BP 120/64
[2020-06-25 09:13] LABS: HEMATOCRIT 31.4 % (42.0-52.0); HEMOGLOBIN 10.1 gm/dL (14.0-18.0); MCH 26.2 pg (26.0-34.0); MCHC 32.1 g/dL (28.0-37.0); MCV 81.7 fL (80.0-100.0); RBC 3.85 mil/uL (4.50-6.00); RDW 18.8 % (10.5-14.5); WBC 5.7 thou/uL (4.0-11.0)
[2020-06-25 09:17] LABS: CALCIUM 8.3 mg/dL (8.5-10.1); CREATININE 0.7 mg/dL (0.7-1.3)
[2020-06-25] MEDS ORDERED: KEFLEX500 M1 PO (15:31)
[2020-06-25] MEDS ORDERED: LASIX 20 MG TAB20 MG PO (15:32)
--- NOTE | 2020-06-25 15:39 | NUR ---
ASSUMED PT CARE THIS AM. PT IS ALERT & ORIENTED X 3 AND CONFUSED SOMETIMES. pT IS UP WITH ASSIST X2 AND USES WALKER TO TRANSFER. PT HAS IV SITE ON L AC. PT IS ACCUCHECK ACHS. GIVEN APPLE JUICE THIS AM DUE TO LOW BG. PT IS INCONTINENT AND TURN Q2H. GIVEN AMMONIUM LACTATE AND TUBIGRIP ON PT BILATERAL LOWER EXTREMITIES. PT DENIES PAIN DURING THE SHIFT. GIVEN HANDS OFF REPORT TO NURSE ON [place] THIS AFTERNOON. PT ON THE CHAIR WATCHING TV. CHAIR ALARM ON AND CALL LIGHT WITHIN REACH. WILL BE DISCHARGE THIS AFTERNOON.
--- NOTE | 2020-06-25 16:00 | NUR ---
ON-GOING ASSESSMENT: CM REVIEWED CHART AND SPOKE WITH ATTENDING WHO REPORTS PT IS STABLE FOR SNF. CM SPOKE WITH LIATINO OCONNOR FROM [facility] WHO REPORTS THEY HAVE AUTH AND CAN ACCEPT PATIENT TODAY BUT HE HAS TWO DAYS LEFT COVERED AT 100 PERCENT AND THEN WILL BE IN [place] DAYS OF 180/DAY. CM NOTIFIED PT AND HE STATES IT IS WHAT IT IS AND IS AGREEABLE. CM NOTIFIED SETH MARIE WITH [facility] TODAY TO FACILITY AND PROVIDED HER WITH THE FACILITY NAME. CM ALSO NOTIFIED LIASON OF SETH WINTERS NUMBER. CM ALSO NOTIFIED SETH DAILY WHO IS PTS BAGGER [employer]AT THROUGH [employer]. CHART COPY WAS ORDERED. D/C ORDERS WERE FAXED TO FACILITY AND CONFIRMED THEY RECEIVED THEM. PT REPORTS HE HAS NOTIFIED HIS FAMILY FRIEND. PT REPORTS NO FURTHER NEEDS FROM CM. BEDSIDE RN HAS THE NUMBER FOR REPORT WELL NOTIFIED TRANSPORTATION IS ARRANGED FOR [id number].
--- NOTE | 2020-06-25 16:41 | NUR ---
ASSUMED PT CARE THIS AM. PT IS ALERT & ORIENTED X2 AND CONFUSED AT TIMES. PT HAS IV SITE ON L AC. pT IS UP WITH ASSIST X1 AND USES WALKER. PT IS INCONTINENT OF URINE. PLACED AMMONIUM LACTATE AND TUBIGRIP ON BILATERAL LOWER EXTREMITIES. PT IS ACCUCHECK. PT BG WAS LOW AND GIVEN APPLE JUICE. PT FRIEND CALLED FOR UPDATE AND INFORMED THAT PT WILL BE GOING TO [place] TODAY. GIVEN HANDS OFF REPORT TO [place] THIS AFTERNOON. PT DENIES PAIN AND NAUSEA DURING SHIFT. PT ON THE BED, BED ON THE LOWEST POSITION, SIDE RAILS UP, CALL LIGHT WITHIN REACH. WILL CONTINUE TO MONITOR. FOLLOW POC.
--- NOTE | 2020-06-26 15:05 | HC ---
[facility] [place] [address] CONSULTATION Name: ELIZABETH GARCIA Room #: 443-P [facility] IN M.R.#: [id number] Admission: 06/19/20 Attend Phys: Joao Kyle MD Discharge: 06/25/20 Date of : 47 Report #: [id number] THIS REPORT FOR: cc: Basim Cates MD, Charles MD Smithson,Sunil Marion MD ~ DATE OF SERVICE: 06/20/2020 HISTORY OF PRESENT ILLNESS: The patient is a 74-year-old white male admitted with lower extremity edema, question lymphedema, significant bilateral lower extremity cellulitis, history of peripheral arterial disease. He had been at an [facility], was doing well there and was ambulating and was discharged home and then had problems with increasing lower extremity edema. He has been unable to ambulate. Interventional Radiology is involved and their plan is to do an IV ultrasound/venogram IVC, bilateral iliac veins. We are seeing him in rehabilitation medicine consultation. PAST MEDICAL HISTORY: Includes a prior angiogram with angioplasty, 05/25/2020. History of bilateral total hip replacements, right total knee replacement, cardiac pacer. History of atrial fibrillation. MEDICATIONS: Please see the full medication listing. ALLERGIES: LATEX, METFORMIN and SULINDAC. SOCIAL HISTORY: Lives alone, house, 2 steps, was premorbidly utilizing a roller walker. He notes he does not have any living family. REVIEW OF SYSTEMS: No current complaints of chest pain, shortness of breath or abdominal discomfort. Main complaint is the significant lower extremity edema and pain complaints. PHYSICAL EXAMINATION: GENERAL: He is a 74-year-old male in no obvious distress. VITAL SIGNS: Last recorded temperature 98.2, pulse 66, respirations 16, blood pressure 106/49. He is alert and oriented. HEENT: Appeared to be benign. NEUROLOGIC: Cranial nerves are grossly intact. Facies are symmetric. EXTREMITIES: He has some decreased end range of motion of both upper extremities. Strength is probably a grade 3+ to 4-/5. His lower extremities, he has considerable swelling from the knees distally with marked erythema from mid tibia distally. He has some superficial ulcerations of the skin. There is some warmth to palpation. Strength is probably a grade 3+/5 to maybe 4-/5. He has been max assist to try to stand and max to take a few steps with pivoting. [address] [address] CONSULTATION Name: RADHAELIZABETH Room #: 443-P [facility] IN ..#: [id number] Admission: 06/19/20 Attend Phys: Joao Kyle MD Discharge: 06/25/20 Date of : 47 Report #: [id number] ASSESSMENT: This is a 74-year-old male with the following problem list: 1. Medical complexity with generalized debilitation. 2. Bilateral lower extremity cellulitis, complicated by edema, possibly lymphedema. 3. Peripheral arterial disease. 4. Diabetes mellitus. 5. Atrial fibrillation. 6. Permanent pacemaker. 7. Obesity. PLAN: Interventional Radiology is involved as noted above. Occupational therapy is to evaluate. He had a recent [facility] facility stay just prior to his acute hospitalization at this time. We will need to see how he does in his therapies and follow along with you regarding his rehab therapy needs. <ELECTRONICALLY SIGNED> By: Sunil Florez MD 06/26/20 1505 [id number] [id number] Sunil Florez MD /[facility]
--- NOTE | 2020-06-26 16:49 | HC ---
[facility] [place] [address] CONSULTATION Name: ELIZABETH GARCIA Room #: 443-P [facility] IN M.R.#: [id number] Admission: 06/19/20 Attend Phys: Joao Kyle MD Discharge: 06/25/20 Date of : 47 Report #: [id number] THIS REPORT FOR: cc: Basim Cates MD, Charles MD Althoff,Ulises Benton MD ~ DATE OF SERVICE: 06/21/2020 CHIEF COMPLAINT: Cellulitis, right lower extremity. HISTORY OF PRESENT ILLNESS: This is a 74-year-old male patient who I have seen before for wound care issues with bilateral lower extremity lymphedema, diabetes and peripheral vascular disease, who was brought to the Emergency Department with increasing swelling, redness, drainage and pain. He notes significant pain in the right lower extremity. He has undergone previous angioplasty for segmental occlusion in the distal portion of the right lower extremity. He denies shortness of breath or chest pain at this time. PAST MEDICAL HISTORY: Positive for history of type 2 diabetes mellitus, previous left hip replacement, arthroscopic knee surgery 10 years ago, pacemaker, atrial fibrillation, hyperlipidemia. SOCIAL HISTORY: Negative for alcohol or tobacco use. FAMILY HISTORY: Noncontributory. MEDICATIONS: Include acetaminophen, ascorbic acid, aspirin, cholecalciferol, cyanocobalamin, finasteride, furosemide, glipizide, multivitamin, omeprazole, oxybutynin, potassium chloride, simvastatin, sitagliptin, tamsulosin, Coumadin. ALLERGIES: LATEX, SULINDAC AND METFORMIN. REVIEW OF SYSTEMS: CONSTITUTIONAL: The patient denies fever, chills or weight loss. NEUROLOGICAL: The patient denies focal weakness. EYES: The patient denies visual changes, redness, or drainage. ENT: The patient denies earache, drainage or sore throat. CARDIOVASCULAR: The patient denies chest pain, palpitations or diaphoresis. PULMONARY: The patient denies cough or shortness of breath. GASTROINTESTINAL: The patient denies nausea, vomiting, diarrhea or abdominal pain. ORTHOPEDIC: The patient complains of pain, swelling of both lower extremities, more so on the right than the left. Other systems in a 14-point review of systems are negative. [address] [address] CONSULTATION Name: ELIZABETH GARCIA Room #: 443-P [facility] IN .R.#: [id number] Admission: 06/19/20 Attend Phys: Joao Kyle MD Discharge: 06/25/20 Date of : 47 Report #: [id number] PHYSICAL EXAMINATION: VITAL SIGNS: At this time include temperature 37.3, pulse 65, respiratory rate 18, blood pressure 117/58. GENERAL: This is a chronically ill-appearing male patient who appears to be in no distress. HEENT: Head normocephalic. Nose and throat are clear. NECK: Supple. LUNGS: Clear. HEART: Regular rhythm. ABDOMEN: Bowel sounds present. EXTREMITIES: Examination of the lower extremities demonstrate significant redness and swelling to the right lower extremity below the knee. He has some chronic venous stasis dermatitis bilaterally, but clearly, a cellulitis involving the right lower extremity. LABORATORY STUDIES: Include white blood cell count 7.4 with hemoglobin 9.7, hematocrit of 30.6, platelet count is 122,000. Sodium 135, potassium 3.1, chloride 101, CO2 is 29, BUN 15, creatinine 0.7. Albumin is 3.0. CLINICAL IMPRESSION: 1. Cellulitis to the right lower extremity. 2. Venous stasis dermatitis, bilateral lower extremities. 3. Type 2 diabetes mellitus. 4. Peripheral arterial disease. 5. Chronic atrial fibrillation. RECOMMENDATIONS: At this point in time, we will recommend topical AmLactin cream to both lower extremities. At this point in time, I do not think it would be reasonable to provide compression. I think that may worsen his cellulitis. We will recommend elevation of the legs at all times and elevation of the foot of the bed while in bed. Perhaps if the cellulitis decreases, we could consider additional compression. I appreciate being asked to see him in consultation. <ELECTRONICALLY SIGNED> By: Ulises Wright MD 06/26/20 1649 [id number] [phone] Ulises Wright MD /nt
== END 2020-06-25 18:18 | DRG 300 ==
LOC: ER 13:06 → EROBS 17:12 → 4S 17:12
PROVIDERS: Nurse Practitioner; Nurse Practitioner Adult Health; ADMIT Internal Medicine; ATTEND Internal Medicine
DX: E11.51 Type 2 diabetes mellitus with diabetic peripheral angiopathy without gangrene (principal); L03.115 Cellulitis of right lower limb; I48.20 Chronic atrial fibrillation, unspecified; M31.9 Necrotizing vasculopathy, unspecified; E46 Unspecified protein-calorie malnutrition; L97.829 Non-pressure chronic ulcer of other part of left lower leg with unspecified severity; L97.819 Non-pressure chronic ulcer of other part of right lower leg with unspecified severity; L03.116 Cellulitis of left lower limb; I87.8 Other specified disorders of veins; L30.8 Other specified dermatitis; E78.5 Hyperlipidemia, unspecified; R53.81 Other malaise; M19.90 Unspecified osteoarthritis, unspecified site; I07.1 Rheumatic tricuspid insufficiency; N40.0 Benign prostatic hyperplasia without lower urinary tract symptoms; E66.9 Obesity, unspecified; F03.90 Unspecified dementia, unspecified severity, without behavioral disturbance, psychotic disturbance, mood disturbance, and anxiety; I48.0 Paroxysmal atrial fibrillation; I95.9 Hypotension, unspecified; I50.9 Heart failure, unspecified; Z60.2 Problems related to living alone; Z96.643 Presence of artificial hip joint, bilateral; Z96.651 Presence of right artificial knee joint; Z79.84 Long term (current) use of oral hypoglycemic drugs; Z68.29 Body mass index [BMI] 29.0-29.9, adult; Z95.0 Presence of cardiac pacemaker; Z91.040 Latex allergy status; Z79.899 Other long term (current) drug therapy; Z88.8 Allergy status to other drugs, medicaments and biological substances
CPT/HCPCS: 10195

== ENCOUNTER → 2020-09-25 | Outpatient (CLI) | payer OTHER | LOC: SJCVCIMAG 09:56 | PROVIDERS: ATTEND Nuclear Medicine Nuclear Cardiology | DX: I70.202 Unspecified atherosclerosis of native arteries of extremities, left leg (principal); I87.2 Venous insufficiency (chronic) (peripheral); M79.89 Other specified soft tissue disorders; I48.91 Unspecified atrial fibrillation; I35.0 Nonrheumatic aortic (valve) stenosis; E11.9 Type 2 diabetes mellitus without complications; E78.5 Hyperlipidemia, unspecified; Z87.891 Personal history of nicotine dependence; Z91.040 Latex allergy status; Z79.899 Other long term (current) drug therapy; Z79.84 Long term (current) use of oral hypoglycemic drugs; Z88.8 Allergy status to other drugs, medicaments and biological substances ==

== ENCOUNTER → 2020-09-28 | Outpatient (CLI) | payer OTHER | LOC: HYPER 07:48 | PROVIDERS: ATTEND Emergency Medicine | DX: E11.621 Type 2 diabetes mellitus with foot ulcer (principal); L97.512 Non-pressure chronic ulcer of other part of right foot with fat layer exposed; S91.104A Unspecified open wound of right lesser toe(s) without damage to nail, initial encounter; E11.622 Type 2 diabetes mellitus with other skin ulcer; L97.812 Non-pressure chronic ulcer of other part of right lower leg with fat layer exposed; S90.31XA Contusion of right foot, initial encounter; I87.2 Venous insufficiency (chronic) (peripheral); E11.51 Type 2 diabetes mellitus with diabetic peripheral angiopathy without gangrene; I89.0 Lymphedema, not elsewhere classified; R60.0 Localized edema; E11.628 Type 2 diabetes mellitus with other skin complications; L03.115 Cellulitis of right lower limb; L03.116 Cellulitis of left lower limb; R53.1 Weakness; E78.5 Hyperlipidemia, unspecified; I48.91 Unspecified atrial fibrillation; F32.9 Major depressive disorder, single episode, unspecified; Z87.891 Personal history of nicotine dependence; Z79.4 Long term (current) use of insulin; Z79.82 Long term (current) use of aspirin; Z79.01 Long term (current) use of anticoagulants; Z79.899 Other long term (current) drug therapy; Z95.0 Presence of cardiac pacemaker; Z96.642 Presence of left artificial hip joint; X58.XXXA Exposure to other specified factors, initial encounter; Y93.89 Activity, other specified; Y92.89 Other specified places as the place of occurrence of the external cause; Y99.8 Other external cause status ==

== ENCOUNTER → 2020-10-04 | Outpatient (CLI) | payer OTHER ==
[~2020-10-04] MED LIST changes: +ELIQUIS2.5 MG PO; +ELIQUIS5 MG PO; +GLIPIZIDE 10 MG10 MG PO; +LIPITOR 20 MG T20 M1 PO; +OXYBUTYNIN CHLO15 MG PO; +SPIRONOLACTONE25 MG PO
== END ==
LOC: HYPER 07:35
PROVIDERS: ATTEND Emergency Medicine
DX: E11.622 Type 2 diabetes mellitus with other skin ulcer (principal); L97.812 Non-pressure chronic ulcer of other part of right lower leg with fat layer exposed; S91.104D Unspecified open wound of right lesser toe(s) without damage to nail, subsequent encounter; S90.31XD Contusion of right foot, subsequent encounter; I87.2 Venous insufficiency (chronic) (peripheral); I89.0 Lymphedema, not elsewhere classified; R60.0 Localized edema; E11.628 Type 2 diabetes mellitus with other skin complications; L03.115 Cellulitis of right lower limb; L03.116 Cellulitis of left lower limb; E11.51 Type 2 diabetes mellitus with diabetic peripheral angiopathy without gangrene; R53.1 Weakness; I48.91 Unspecified atrial fibrillation; E78.5 Hyperlipidemia, unspecified; F32.9 Major depressive disorder, single episode, unspecified; Z87.891 Personal history of nicotine dependence; Z79.84 Long term (current) use of oral hypoglycemic drugs; Z79.82 Long term (current) use of aspirin; Z79.01 Long term (current) use of anticoagulants; Z95.0 Presence of cardiac pacemaker; Z79.899 Other long term (current) drug therapy; X58.XXXD Exposure to other specified factors, subsequent encounter

== ENCOUNTER 2020-10-08 09:45 | Inpatient (IN) | payer OTHER ==
[2020-10-08] VITALS (41 sets, daily range): BP systolic 31–126; BP diastolic 12–74
[~2020-10-08] VITALS: Ht 180.3 cm; Wt 107.5 kg
--- NOTE | ~2020-10-08 | EMS ---
[place] [address] EMS Patient Care Report Name: ELIZABETH GARCIA Room #: 362-P [facility] IN M.R.#: [id number] Admission: 10/08/20 Attend Phys: Devon Osullivan MD Discharge: 10/15/20 Date of : 46 Report #: [id number] THIS REPORT FOR: //name// Report Transmitted: 10/16/2020 14:27 EMS Care Summary [place], [place]/[facility] Incident [id number] @ 10/08/2020 09:13 Incident Location [address] [place] [address] 9 Patient ELIZABETH GARCIA Male, 74 Years 1945 Patient Address [address] [place] [address] Patient History Pacemaker/AICD,Type 2 Diabetes, Patient Allergies No known allergies, Patient Medications Eliquis, Finasteride, Oxybutynin, Atrovent, Chief Complaint Abdominal pain Disposition Transported No Lights/[place] Dispatch Reason Sick Person Transported To [facility] Narrative Upon arrival PT was sitting in the upright position in chair. PT had a CC of of abdominal pain. POT stated the pain had started a "few hours" prior. PT also stated he had a darker stool then normal. [place] [address] EMS Patient Care Report Name: ELIZABETH GARCIA Room #: 362-P [facility] IN Thuan#: [id number] Admission: 10/08/20 Attend Phys: Devon Osullivan MD Discharge: 10/15/20 Date of : 46 Report #: [id number] taken to back of ambulance for further medical evaluation and intervention. PT was then monitored for change while en route to hospital. Initial Vitals @09:35P: 65,CO: 3,SpO2: 94, @09:32P: 65,R: 18,BP: 135/55,Pain: 0/10,GCS: 15,CO: 0,SpO2: 95,Revised Trauma: 12, @09:36P: 80,R: 18,BP: 116/66,Pain: 0/10,GCS: 15,SpO2: 98,Revised Trauma: 12, Assessments @09:23MENTAL:No Abnormalities,SKIN:No Abnormalities,HEENT:Head/Face: No Abnormalities,Eyes: No Abnormalities,Neck/Airway: No Abnormalities,LUNG SOUNDS:General: Other,ABDOMEN:General: Other,PELVIS//GI:EXTREMITIES:Capillary Refill: Left Upper: < 2 Sec,Capillary Refill: Right Upper: < 2 Sec,PULSE:Radial: 2+ Normal,NEURO: Impression Abdominal Pain Procedures @09:23ALS AssessmentResponse: UnchangedSucceeded Timeline 09:11,Call Received 09:11,Dispatch Notified 09:13,Dispatched 09:15,En Route 09:22,On Scene 09:23,At Patient 09:23,ALS Assessment,Response: UnchangedSucceeded, 09:32,BP: 135/55 M,PULSE: 65,RR: 18 R,SPO2: 95 Ox,ETCO2: ,BG: ,PAIN: 0,GCS: 15, 09:34,Depart Scene 09:35,BP: / M,PULSE: 65,RR: R,SPO2: 94 Ox,ETCO2: ,BG: ,PAIN: ,GCS: , 09:36,BP: 116/66 M,PULSE: 80,RR: 18 R,SPO2: 98 Ox,ETCO2: ,BG: ,PAIN: 0,GCS: 15, 09:42,At Destination 10:00,Call Closed Disclaimer v1.1 Copyright 2020 [employer] This EMS Care Summary contains data elements from the applicable legal record (which may be displayed differently). It is designed to provide pertinent information for the following purposes: continuity of care, clinical quality, and state data reporting. The complete legal record is available to ED staff and administrators of the receiving hospital in ES's Patient Tracker. All data is provided "as is."
[~2020-10-08 09:45] MED LIST changes: -ELIQUIS2.5 MG PO; -ELIQUIS5 MG PO; -GLIPIZIDE 10 MG10 MG PO; -LIPITOR 20 MG T20 M1 PO; -OXYBUTYNIN CHLO15 MG PO; -SPIRONOLACTONE25 MG PO
[2020-10-08 10:01] LABS: BE(vivo) -3.8 mmol/L (-2 to +3); HCO3 22.8 mmol/L (22.0-26.0); PCO2 47.5 mmHg (35.0-45.0); PO2 90.2 mmHg (80.0-100.0); pH 7.299 (7.360-7.450)
[2020-10-08 10:12] LABS: ABSOLUTE NEUTROPHILS 14.6 thou/uL (1.4-8.2); BASOPHILS 0.1 % (0.0-2.0); HEMATOCRIT 37.1 % (42.0-52.0); HEMOGLOBIN 11.4 gm/dL (14.0-18.0); LYMPHOCYTES 1.4 % (24.0-44.0); MCH 22.5 pg (26.0-34.0); MCHC 30.9 g/dL (28.0-37.0); MCV 72.8 fL (80.0-100.0); MONOCYTES 4.9 % (1.0-8.0); PLATELET COUNT 153 thou/uL (150-400); POLYS 93.6 % (36.0-66.0); RBC 5.09 mil/uL (4.50-6.00); RDW 21.7 % (10.5-14.5); WBC 15.6 thou/uL (4.0-11.0)
[2020-10-08 10:15] LABS: ANION GAP 12 mmol/L (7-16); BUN 22 mg/dL (7-18); CALCIUM 9.9 mg/dL (8.5-10.1); CHLORIDE 97 mmol/L (98-107); CO2 26 mmol/L (21-32); CREATININE 1.2 mg/dL (0.7-1.3); GLUCOSE 254 mg/dL (74-106); POTASSIUM 3.8 mmol/L (3.5-5.1); SODIUM 135 mmol/L (136-145)
[2020-10-08 10:25] LABS: ALBUMIN 3.8 g/dL (3.4-5.0); LIPASE 335 U/L (73-393); SGOT 55 U/L (15-37); SGPT 57 U/L (16-63); TOTAL BILIRUBIN 0.6 mg/dL (0.2-1.0); TOTAL PROTEIN 8.8 g/dL (6.4-8.2); TROPONIN-I <0.06 ng/mL (<0.06)
[2020-10-08 10:27] LABS: APTT 29.9 Seconds (24.5-32.8); INR 1.01
[2020-10-08 11:20] LABS: URINE BILIRUBIN NEGATIVE (Negative); URINE BLOOD NEGATIVE (Negative); URINE CLARITY CLEAR; URINE COLOR YELLOW; URINE GLUCOSE-RANDOM* NEGATIVE (Negative); URINE KETONES NEGATIVE (Negative); URINE LEUKOCYTES-REFLEX NEGATIVE (Negative); URINE NITRITE-REFLEX NEGATIVE (Negative); URINE PROTEIN (DIPSTICK) NEGATIVE (Negative); URINE SPECIFIC GRAVITY 1.025 (1.005-1.035); URINE UROBILINOGEN 0.2 E.U./dl (0.2-1.0)
[2020-10-08 12:10] LABS: ANISOCYTOSIS 2+; HYPOCHROMASIA 1+; MICROCYTES 1+
[2020-10-08] MEDS ORDERED: LIPITOR 20 MG T20 M1 PO (12:50)
[2020-10-08] MEDS ORDERED: ELIQUIS5 MG PO (12:51)
[2020-10-08] MEDS ORDERED: OXYBUTYNIN CHLO15 MG PO ×2 (12:54→15:23)
[2020-10-08] MEDS ORDERED: SPIRONOLACTONE25 MG PO (13:01)
--- NOTE | 2020-10-08 13:45 | NUR ---
report received from SLAVA Floyd. admitted to icu # 245 with diagnosis: resp failure, gastrointestinal bleed. alert to person, place, calm, flat effect, SR-65, first liter of NS completing, starting ns at 126cc/hr, audible crackles, crackles present in leonora upper lobes, mid lobe and diminshed lungs with fine crackles in leonora bases, 100% non-rebreather, npo, r nare ng to LWIS with light brown drainage with total of 1,400cc output reported from previous RECORD LIBRARIAN when pt received in ICU, abd firm/distended in leonora upper quads, soft in leonora lower quads, hypoactive bowel sounds throughout, newberry 24fr with adequate clear yellow urine output. Dr. Hassan returned call- orders to keep sa02 >92%, bipap if needed.
[2020-10-08 14:49] LABS: CALCIUM 8.7 mg/dL (8.5-10.1); CREATININE 1.1 mg/dL (0.7-1.3); POTASSIUM 3.9 mmol/L (3.5-5.1)
[2020-10-08] MEDS ORDERED: ELIQUIS2.5 MG PO ×2 (14:51→15:20)
--- NOTE | 2020-10-08 15:09 | NUR ---
1509- Nurse talked with Puja at [facility], who was quite rude, expressing that what every med list she sent over is what he is on and that it's no different. She did not want to review medication list with nurse. She, in the back ground at first, expressed she didn't want to talk to me because she has already been on the phone with our staff. Nurse expressed that I needed to verify his medications. She expressed on the phone, when she answered, that she has not talked to anyone here, but what she sent is all she knows. Nurse to enter medications as able. Nurse also called the preferred pharmacy list which is different than that of the facility.
--- NOTE | 2020-10-08 15:10 | NUR ---
called Wound Care- Luz Redding RN notified wound care related to leonora lower leg coban dressings. leonora legs elevated with pillows. RN called [place] [facility] and close friend. obtained consent for central line placement, discussed risks and benefits. Dr. Iglesias present, updated on pt status.
[2020-10-08] MEDS ORDERED: FINASTERIDE5 MG PO (15:20)
[2020-10-08] MEDS ORDERED: GLIPIZIDE 10 MG10 MG PO (15:21)
[2020-10-08] MEDS ORDERED: JANUVIA100 MG PO (15:21)
[2020-10-08] MEDS ORDERED: FLOMAX0.4 MG PO (15:23)
--- NOTE | 2020-10-08 17:44 | NUR ---
VAT CONSULTED FOR A CL FOR THIS PT, LABS REVIEWED AND PT WITH RESP SYMPTOMS SO PICC PLACED.
[2020-10-09] VITALS (59 sets, daily range): BP systolic 93–124; BP diastolic 41–80
[2020-10-09 00:21] LABS: CALCIUM 7.7 mg/dL (8.5-10.1); CREATININE 0.8 mg/dL (0.7-1.3)
[2020-10-09 04:26] LABS: ABSOLUTE NEUTROPHILS 8.4 thou/uL (1.4-8.2); BASOPHILS 0.2 % (0.0-2.0); HEMATOCRIT 28.7 % (42.0-52.0); MCV 74.4 fL (80.0-100.0); MONOCYTES 5.8 % (1.0-8.0); RBC 3.85 mil/uL (4.50-6.00); RDW 21.5 % (10.5-14.5); WBC 9.4 thou/uL (4.0-11.0)
[2020-10-09 04:29] LABS: HEMOGLOBIN 8.9 gm/dL (14.0-18.0)
[2020-10-09 04:30] LABS: PLATELET COUNT 76 thou/uL (150-400)
[2020-10-09 04:33] LABS: ALBUMIN 2.3 g/dL (3.4-5.0); CALCIUM 7.9 mg/dL (8.5-10.1); CREATININE 0.7 mg/dL (0.7-1.3); MAGNESIUM 1.6 mg/dL (1.8-2.4); TOTAL BILIRUBIN 0.6 mg/dL (0.2-1.0)
--- NOTE | 2020-10-09 07:17 | EKG ---
[address] [place] [address] ELECTROCARDIOGRAM REPORT Name: ELIZABETH GARCIA Room #: 245-P ADM IN M.R.#: [id number] Admission: 10/08/20 Attend Phys: Devon Osullivan MD Discharge: Date of : 47 Report #: [id number] [facility] ED Test Date: 2020-10-08 Test Time: 10:17:51 Pat Name: ELIZABETH GARCIA Department: Room: [facility] Gender: M Multimedia Assistant: INEZ : 1945 Requested By: Victor M Isabel Order Number: [id number] MD: Thee Ba Measurements Intervals [place] Rate: 65 P: 0 AK: 75 QRS: -44 QRSD: 171 T: 136 QT: 457 QTc: 476 Interpretive Statements Ventricular-paced rhythm No further analysis attempted due to paced rhythm Compared to ECG 06/19/2020 13:19:54 Left bundle-branch block no longer present Electronically Signed On 10-09-2020 7:17:10 CDT by Thee Ba [email or web address] <ELECTRONICALLY SIGNED> By: Thee Ba MD, [facility] 10/09/20 0717 1017 101 Thee Ba MD, [facility] /EPI
[2020-10-09 15:54] LABS: CALCIUM 7.9 mg/dL (8.5-10.1); CREATININE 0.8 mg/dL (0.7-1.3); POTASSIUM 3.5 mmol/L (3.5-5.1)
--- NOTE | 2020-10-09 22:04 | HC ---
[facility] [place] [address] CONSULTATION Name: ELIZABETH GARCIA Room #: 245-P ADM IN M.R.#: [id number] Admission: 10/08/20 Attend Phys: Devon Osullivan MD Discharge: Date of : 47 Report #: [id number] THIS REPORT FOR: cc: Basim Cates MD, Charles MD Geha,Tray Escobar MD ~ DOC #: [id number] Tray Iglesias MD DATE OF SERVICE: 10/08/2020 INFECTIOUS DISEASE CONSULTATION REASON FOR CONSULTATION: I was asked to evaluate concerning severe sepsis and aspiration. 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 He has also been short of breath for the last 2 days leading up to this. He has noticed abdominal distention. There has been no diarrhea or melena. No previous history of GI bleeding. He does have peripheral vascular disease and cardiovascular disease. He was hospitalized last in June with lower extremity skin and soft tissue infection. The patient has underlying dementia. He was alert and able to converse. A 14-point review was negative other than what has been described above. He does have lower extremity wraps in place and an indwelling Carrasco catheter was placed as well. He has had reasonable urine output. His blood pressure has been stable and has remained off vasopressors. He is receiving IV fluid resuscitation. He had a large volume of emesis in the Emergency Room. NG tube now has been placed. PAST MEDICAL HISTORY: Peripheral vascular disease. He has had a stent to left anterior tibial artery and chronic venous stasis of both lower extremities with ulceration to the right toe and lower legs. He has underlying diabetes, atrial fibrillation on chronic anticoagulation, congestive heart failure, aortic stenosis, prostatic hypertrophy, degenerative arthritis, nephrolithiasis. PAST SURGICAL HISTORY: Bilateral total hip arthroplasties for degenerative arthritis. He has had oral surgery and arthroscopic knee surgery. ALLERGIES: LATEX, METFORMIN, SULINDAC. MEDICATIONS: As noted on his JUN, having been reviewed. Now on vancomycin, Zosyn and Levaquin. [facility] [address] [place] [address] CONSULTATION Name: ELIZABETH GARCIA Room #: 245-P [facility] IN ..#: [id number] Admission: 10/08/20 Attend Phys: Devon Osullivan MD Discharge: Date of : 47 Report #: [id number] FAMILY HISTORY: Negative for tuberculosis. SOCIAL HISTORY: He is a past smoker with alcohol use, none recent. REVIEW OF SYSTEMS: A 14-point review was negative other than what has been described above. PHYSICAL EXAMINATION: VITAL SIGNS: He was hypothermic, now on a warming blanket. He is on 15 liters per nonrebreather, pulse of 65, blood pressure 126/58, oxygen saturation was 95% on this . SKIN: With lower extremity multilayer compression wraps to the knees. He had an extensive wound with dressing changes to the right second toe. No other rash or lesions noted. No decubiti. No palpable adenopathy. HEENT: Eyes without scleral icterus. Mouth without mucositis. LUNGS: Coarse breath sounds bilaterally with no consolidation or rub. HEART: Regular, without murmur, gallop or rub. ABDOMEN: Distended with no mass or hepatosplenomegaly appreciated. GENITOURINARY: External genitalia with indwelling Carrasco catheter. No masses or lesions. RECTAL: Examination not performed. EXTREMITIES: With 3+ lower extremity edema with compression wraps in place. Cranial nerves intact, able to move all extremities. PSYCHIATRIC: Mood without anxiety. LABORATORY DATA: Reviewed with lactate of 4.4, creatinine 1.2. BNP of 830. AST of 55. Hemoglobin 11, white count 15.6. Urinalysis unremarkable. Procalcitonin was 0.2. CT scan of the abdomen showed left base effusion, bilateral basilar atelectasis, infiltrates, increased bowel loops and stomach consistent with ileus or possibly a proximal colon obstruction. IMPRESSION: 1. A 74-year-old with acute aspiration healthcare associated with severe sepsis due to right foot and lower extremity cellulitis versus gastrointestinal bleeding versus aspiration or combination of the above. 2. Ileus versus small-bowel obstruction, has gastrointestinal bleed with mild anemia, which will need to be followed. 3. Atrial fibrillation, on anticoagulation. 4. Diabetes. 5. Obesity. 6. Dementia. RECOMMENDATIONS: We will continue ICU care, IV fluids, vasopressors if needed. Broad antibiotic coverage while awaiting cultures of blood and sputum. Wound care service will be to change his dressings and reevaluate his wounds. [address] [place] [address] CONSULTATION Name: ELIZABETH GARCIA Room #: 245-P [facility] IN M.R.#: [id number] Admission: 10/08/20 Attend Phys: Devon Osullivan MD Discharge: Date of : 47 Report #: [id number] Follow serial laboratory studies and would have General Surgery evaluate for his ileus versus GI obstruction. If his hemoglobin continues to drop, will need upper endoscopy. MD MIGUELITO Munoz/DAX/ROXANNE <ELECTRONICALLY SIGNED> By: Tray Iglesias MD 10/09/20 2204 1458 [id number] Tray Iglesias MD /nt
[2020-10-10] VITALS (29 sets, daily range): BP systolic 105–142; BP diastolic 45–75
[2020-10-10 04:27] LABS: ABSOLUTE NEUTROPHILS 6.1 thou/uL (1.4-8.2); BASOPHILS 0.4 % (0.0-2.0); EOSINOPHILS 0.3 % (0.0-3.0); HEMATOCRIT 27.5 % (42.0-52.0); HEMOGLOBIN 8.6 gm/dL (14.0-18.0); LYMPHOCYTES 8.4 % (24.0-44.0); MCHC 31.3 g/dL (28.0-37.0); MCV 73.5 fL (80.0-100.0); MONOCYTES 7.9 % (1.0-8.0); PLATELET COUNT 65 thou/uL (150-400); RBC 3.74 mil/uL (4.50-6.00); RDW 21.6 % (10.5-14.5); WBC 7.3 thou/uL (4.0-11.0)
[2020-10-10 04:58] LABS: CREATININE 0.6 mg/dL (0.7-1.3); POTASSIUM 3.3 mmol/L (3.5-5.1)
--- NOTE | 2020-10-10 12:30 | NUR ---
Chart review, DX GI bleed. discussed during [facility] rounds. Possible going for EGD today. reported more confusion and pulling at lines, in restraints. St to eval after edg r/t diet. O2 per nasal cannula. Unable to visit with kyree r/t resting with eyes closed. Cm spoke with friend homer via phone call. education on dcp, he stated want information sent to [facility], he was supposed to be moving in there on 10/11/20, his furniture is already moved there. He will never go back to [facility] or [facility] and he had to private pay to stay at [facility] per homer. New order for therapy eval for dcp. Prior to skilled rehab this year he lived home alone, had [facility] in the past. Has cane and walker. Will cont following as needed for dc needs.
--- NOTE | 2020-10-10 13:30 | NUR ---
ROUNDED WITH DR MEYER AT 1115. DISCUSSED PT'S PLAN OF CARE AT THAT TIME. PT TAKEN TO GI LAB AT 1245 FOR EGD. SPOKE TO HOMER ZARINA ANDERSON, AT 1304. UPDATED HIM ON PT CONFUSION OVER NIGHT AND PT STATUS.
[2020-10-10 18:26] LABS: CALCIUM 8.2 mg/dL (8.5-10.1); CREATININE 0.6 mg/dL (0.7-1.3); POTASSIUM 3.4 mmol/L (3.5-5.1)
[2020-10-11] VITALS (10 sets, daily range): BP systolic 112–132; BP diastolic 58–72
[2020-10-11 04:41] LABS: CALCIUM 8.1 mg/dL (8.5-10.1); CREATININE 0.5 mg/dL (0.7-1.3); POTASSIUM 3.8 mmol/L (3.5-5.1)
[2020-10-11 04:55] LABS: HEMATOCRIT 29.9 % (42.0-52.0); HEMOGLOBIN 9.2 gm/dL (14.0-18.0); MCH 22.7 pg (26.0-34.0); MCHC 30.8 g/dL (28.0-37.0); MCV 73.8 fL (80.0-100.0); RBC 4.05 mil/uL (4.50-6.00); RDW 21.6 % (10.5-14.5)
--- NOTE | 2020-10-11 11:30 | NUR ---
Discussed during [facility] rounds. Transfer out of icu today. Cm called [facility] to see which level of care he was supposed to move into. Spoke with jose at [facility], he was moving in LTC with hopes to get him to [facility] level of care but if in hospital, will want to bring him in under skilled rehab if able per jose. referral faxed to [facility].
[2020-10-11 12:46] LABS: % SATURATION 9 % (20-39); IRON 23 ug/dL (65-175); TIBC 266 ug/dL (250-450)
--- NOTE | 2020-10-11 13:11 | HC ---
[facility] [address] CONSULTATION Name: ELIZABETH GARCIA Room #: 362-P ADM IN M.R.#: [id number] Admission: 10/08/20 Attend Phys: Devon Osullivan MD Discharge: Date of : 47 Report #: [id number] THIS REPORT FOR: cc: Basim Cates MD, Charles MD Althoff,Ulises Benton MD ~ DOC #: [id number] Ulises Wright MD DATE OF SERVICE: 10/09/2020 CHIEF COMPLAINT: Venous dermatitis, bilateral lower extremities. HISTORY OF PRESENT ILLNESS: This is a 74-year-old male patient with whom I am familiar from multiple hospitalizations, who presented to the Emergency Department with apparent GI bleeding and shortness of breath. He normally lives in a nursing care facility, although I have seen him on numerous occasions while here in the hospital. He is in fairly good spirits. He is in ICU presently. MEDICATIONS: Include Coumadin, Keflex, Lasix, glipizide, Januvia, tamsulosin, Lipitor, Eliquis, oxybutynin. ALLERGIES: LATEX, METFORMIN, SULINDAC. SOCIAL HISTORY: Positive for occasional alcohol use. Negative for tobacco use. FAMILY HISTORY: Noncontributory. REVIEW OF SYSTEMS: CONSTITUTIONAL: Denies fever, chills, weight loss. NEUROLOGICAL: Denies focal weakness. HEENT: The patient denies earache, nasal drainage, sore throat. CARDIOVASCULAR: Denies chest pain, palpitations. PULMONARY: He has mild shortness of breath. GASTROINTESTINAL: Denies nausea, but does have some history of hematemesis. GENITOURINARY: ____ frequency, urgency and denies dysuria. ORTHOPEDIC: The patient has some swelling of his lower extremities. Denies any pain at this time. PHYSICAL EXAMINATION: VITAL SIGNS: At this time include temperature 36.3, pulse rate 65, respiratory rate of 20, blood pressure 105/62. GENERAL: This is an elderly male patient appears to be in minimal distress. HEENT: Head normocephalic. Nose and throat clear. NECK: Supple. LUNGS: Diminished. HEART: Irregular. [facility] [address] [place] [address] CONSULTATION Name: ELIZABETH GARCIA Room #: 362-P ADM IN M.R.#: [id number] Admission: 10/08/20 Attend Phys: Devon Osullivan MD Discharge: Date of : 47 Report #: [id number] ABDOMEN: Soft and bowel sounds present. EXTREMITIES: Examination of the lower extremities demonstrate venous dermatitis, bilateral lower extremities. Really no discrete significant open ulcerations. NEUROLOGIC: The patient alert and oriented. LABORATORY STUDIES: Include white blood cell count 9.4, hemoglobin of 8.9. Sodium 140, potassium 3.3, chloride 107. BUN 20. Glucose 132. Albumin is 2.3. CLINICAL IMPRESSION: 1. Venous stasis dermatitis, bilateral lower extremities. 2. History of peripheral arterial disease, status post angiography with Dr. Dubon, 05/25/2020. 3. Type 2 diabetes mellitus. 4. Hyperlipidemia. RECOMMENDATIONS: At this point, I recommend Xeroform, ABD, Kerlix and James, toes to knees Thursday, Thursday, Thursday, bilateral lower extremities. Elevate for edema control as much as possible. Continue with medical management for his underlying medical issues. Continue with aggressive nutritional support. I appreciate being asked to see the patient in consultation. MD RAMONA Chau/NEMO/STEWART <ELECTRONICALLY SIGNED> By: Ulises Wright MD 10/11/20 1311 [id number] Ulises Wright MD /nt
--- NOTE | 2020-10-11 18:19 | NUR ---
assumed care of pt on arrival to unit. pt alert and oriented x2-3, occasional periods of confusion. no acute distress. pleasant. 2L NC. good appetite. sitting in chair with meals. ivf per order. wcm.
[2020-10-12 03:09] VITALS: BP 120/64
--- NOTE | 2020-10-12 04:16 | NUR ---
Up in recliner chair at then assisted back to bed with use of gait belt and walker. Repositioned for comfort. O2 at 2L/C , no respiratory distress. He slept well during the night. He is afebrile. Lower ext wrapped. Prafo boots on. Making some progress towards care plan goals.
[2020-10-12 07:47] VITALS: BP 140/63
--- NOTE | 2020-10-12 08:34 | NUR ---
PT REFUSED PO AND SQ MEDICATION THIS MORNING.
--- NOTE | 2020-10-12 13:37 | NUR ---
PT TRANSFERRED BACK TO BED. MAX ASSISTX2 PEOPLE NEEDED. PT UNABLE TO HOLD SELF UP OR PARTICIPATE IN TRANSFER.
--- NOTE | 2020-10-12 15:20 | NUR ---
SADIE reviewed chart and spoke with nursing and attending physician. Pt was transferred to from ICU and is progressing towards goals for discharge. SADIE faxed updated clinical/therapy notes to [facility] for review. Will need insurance auth for pt to return using his skilled benefit. SADIE spoke with pt's friend, [place], via phone to provide update and discuss discharge plan. Confirmed plan is for pt to discharge to [facility] pending insurance auth. SADIE spoke with Vickie in admissions at [facility], who states she submitted for insurance auth this morning. Unlikely they will receive auth over the weekend. Anticipate discharge Thursday/early next week. SADIE is following and available to assist as needed with discharge planning.
[2020-10-12 15:31] VITALS: BP 133/67
[2020-10-12 20:17] VITALS: BP 133/66
[2020-10-13 05:40] VITALS: BP 143/57
[2020-10-13 08:00] VITALS: BP 120/57
[2020-10-13 16:00] VITALS: BP 135/76
[2020-10-13 20:05] VITALS: BP 145/59
[2020-10-14 04:15] VITALS: BP 160/88
--- NOTE | 2020-10-14 05:02 | NUR ---
Pt. slept well during the night. Repositioned for comfort. Maintaining O2 sat in the mid to upper 90's on 2L/NC.He gets short of breath with exertion. Incontinent of large bm last. Lower ext wrapped with SENA , boots in place. Making some progress towards care plan goals.
[2020-10-14 07:43] VITALS: BP 141/66
[2020-10-14 15:23] VITALS: BP 139/50
[2020-10-14 19:44] VITALS: BP 171/70
--- NOTE | 2020-10-15 03:46 | NUR ---
Pt. nice and pleasant at shift change then at HS he wants to be left alone and saying no ,leave me alone. Pt. repositioned for comfort and left alone watching TV. He later took off his O2 and said no when attempted to put it back on. Checked O2 sat , mid 80's. Pt. informed his O2 sat is low without it and he needs his oxygen back on. Pt agreed and said ok. He slept majority of the night in between turns. O2 sat has been in the mid 90's on 2L/NC. Pt. oriented to person only and has been reoriented , [place] Slowly making progress towards care plan goals.
[2020-10-15 04:10] VITALS: BP 151/57
[2020-10-15 07:55] VITALS: BP 173/74
--- NOTE | 2020-10-15 11:04 | NUR ---
DISCHARGE NOTE: SADIE reviewed chart and spoke with nursing and attending physician. Pt is medically stable for discharge to [facility] today. SADIE received call from Vickie, in admissions at [facility], who states she has received insurance authorization and they can accept pt today. SADIE notified attending physician and pt's nurse. Awaiting final discharge ppwk at this time. SADIE left voice message for Vickie to provide update. Chart copy requested. Nursing provided with number to call report. SADIE is following to finalize discharge plan.
[2020-10-15] MEDS ORDERED: STIMULANT LAXA1 EACH PO (11:07)
[2020-10-15] MEDS ORDERED: CLARITIN10 M2 PO (11:07)
[2020-10-15] MEDS ORDERED: BISACODYL10 MG RECTAL (11:07)
[2020-10-15] MEDS ORDERED: PROTONIX40 M4 PO (11:07)
[2020-10-15] MEDS ORDERED: LIPITOR 20 MG T20 M1 PO (11:07)
[2020-10-15] MEDS ORDERED: AUGMENTIN 875-1 EACH PO (11:07)
--- NOTE | 2020-10-15 12:36 | NUR ---
BILAT LOWER EXTREMITY WOUND CARE DONE, DISCHARGE PICTURES TAKEN. PT ATE MINIMAL AMOUNTS FROM BREAKFAST TRAY AND IS REFUSING LUNCH TRAY. WILL ATTEMPT TO OFFER LUNCH TRAY AGAIN.
[2020-10-15 15:42] VITALS: BP 162/79
--- NOTE | 2020-10-15 15:53 | NUR ---
1450- REPORT CALLED TO [facility], THIS RN GAVE REPORT TO TIM AT [facility]. PT IS SCHEDULED TO DEPART [facility] BETWEEN [phone].
--- NOTE | 2020-10-15 16:14 | NUR ---
PT DEPARTED AT 1605 FOR TRANSFER TO [facility]. PT'S DPOA AND FRIEND HOMER CALLED BY RN AND UPDATED ON TIME OF DEPARTURE.
--- NOTE | 2020-10-16 15:06 | NUR ---
SADIE received call from Lakeshia at [facility] requesting pt's discharge disposition. SADIE returned call ([phone]) to provide update. No additional SW needs identified at this time, but is available to assist should needs arise.
== END 2020-10-15 16:05 | DRG 871 ==
LOC: ER 09:45 → 3W 11:53 → ICU 11:53 → EROBS 11:53 → ICU 13:30 → 3W 10-11 12:39
PROVIDERS: Emergency Medicine; Hospitalist; Internal Medicine Pulmonary Disease; Nurse Practitioner; ADMIT Internal Medicine; ATTEND Internal Medicine
PROC: 02HV33Z Insertion of Infusion Device into Superior Vena Cava, Percutaneous Approach (ICD-10-PCS; 2020-10-08)
PROC: B548ZZA Ultrasonography of Superior Vena Cava, Guidance (ICD-10-PCS; 2020-10-08)
PROC: 0DJ08ZZ Inspection of Upper Intestinal Tract, Via Natural or Artificial Opening Endoscopic (ICD-10-PCS; principal; 2020-10-10)
DX: A41.9 Sepsis, unspecified organism (principal); J69.0 Pneumonitis due to inhalation of food and vomit; G92 Toxic encephalopathy; J96.21 Acute and chronic respiratory failure with hypoxia; J96.22 Acute and chronic respiratory failure with hypercapnia; K29.71 Gastritis, unspecified, with bleeding; E43 Unspecified severe protein-calorie malnutrition; L03.90 Cellulitis, unspecified; K56.7 Ileus, unspecified; D62 Acute posthemorrhagic anemia; I48.20 Chronic atrial fibrillation, unspecified; K92.0 Hematemesis; E78.5 Hyperlipidemia, unspecified; E11.51 Type 2 diabetes mellitus with diabetic peripheral angiopathy without gangrene; I50.9 Heart failure, unspecified; N40.0 Benign prostatic hyperplasia without lower urinary tract symptoms; R65.20 Severe sepsis without septic shock; E66.9 Obesity, unspecified; F03.90 Unspecified dementia, unspecified severity, without behavioral disturbance, psychotic disturbance, mood disturbance, and anxiety; I87.8 Other specified disorders of veins; L30.9 Dermatitis, unspecified; Z66 Do not resuscitate; I35.0 Nonrheumatic aortic (valve) stenosis; I49.5 Sick sinus syndrome; K21.00 Gastro-esophageal reflux disease with esophagitis, without bleeding; Z96.643 Presence of artificial hip joint, bilateral; Z96.651 Presence of right artificial knee joint; Z20.822 Contact with and (suspected) exposure to COVID-19; Z79.82 Long term (current) use of aspirin; Z79.84 Long term (current) use of oral hypoglycemic drugs; Z68.33 Body mass index [BMI] 33.0-33.9, adult; Z95.0 Presence of cardiac pacemaker; Z79.01 Long term (current) use of anticoagulants; Z88.8 Allergy status to other drugs, medicaments and biological substances; Z91.040 Latex allergy status
CPT/HCPCS: 10078; 10196; 10879; 62110; 62900; 65040